=== PATIENT | male | born 1940 | race Caucasian/White ===

== ENCOUNTER 2021-05-27 20:34 | Inpatient (IN) | payer MEDICARE ==
[2021-05-27] MEDS ORDERED: ACETAMINOPHEN TAB 500 MG TAB PO STA (22:18)
[2021-05-27] MEDS ORDERED: DEXAMETHASONE SOD PHOSPHATE 10 MG/ML 1 ML VIAL IVP STA (22:18)
[2021-05-27] MEDS ORDERED: PANTOPRAZOLE 40 MG/10 ML VIAL IVP STA (22:18)
[2021-05-27] MEDS ORDERED: ONDANSETRON 4 MG/2 ML VIAL IVP STA (22:18)
[2021-05-27] MEDS ORDERED: KETOROLAC 15 MG/ML 1 ML VIAL IVP STA (22:18)
[2021-05-27] MEDS ORDERED: SODIUM CHLORIDE 0.9% 1,000 ML IV STA (22:18)
--- NOTE | 2021-05-27 22:20 | ED ---
Fever HPI - General Chief Complaint: Nausea/Vomiting/Diarrhea Stated Complaint: Covid+,CODY Time Seen by Provider: 05/27/21 22:11 Source: patient, RN notes reviewed, old records reviewed Mode of arrival: ambulatory Limitations: no limitations - History of Present Illness Initial Comments: This is a 81-year-old male to the emergency room today. Patient is presented today for evaluation regards to his. Patient is on day 3 not feeling well. Weakness has been persistent. Patient believes he may be exposed to coronavirus patient did and at home coronavirus test which was positive for coronavirus. Again patient is going on day 3-4 not feeling well. He is having persistent nausea vomiting diarrhea and occasional abdominal pain. Medical history is positive for diabetes. He does have underlying heart disease MD Complaint: fever, malaise, weakness, other (NVD) -: days(s) (4) Temperature Source: subjective Context: sick contacts, multiple patients with similar symptoms Associated Symptoms: chills, myalgias, sore throat, cough, nausea, vomiting, diarrhea Treatments Prior to Arrival: none - Related Data Allergies Allergy/AdvReac Type Severity Reaction Status Date / Time colchicine Allergy Unknown Verified 05/27/21 21:11 levofloxacin Allergy Unknown Verified 05/27/21 21:11 metformin Allergy Unknown Verified 05/27/21 21:11 metolazone Allergy Unknown Verified 05/27/21 21:11 sertraline Allergy Unknown Verified 05/27/21 21:11 sitagliptin [From Januvia] Allergy Unknown Verified 05/27/21 21:11 Review of Systems ROS Statement: Those systems with pertinent positive or pertinent negative responses have been documented in the HPI. ROS Other: All systems not noted in ROS Statement are negative. Past Medical History Past Medical History: Atrial Fibrillation, Heart Failure, Diabetes Mellitus, GERD/Reflux, Hyperlipidemia, Hypertension Additional Past Medical History / Comment(s): Gout History of Any Multi-Drug Resistant Organisms: None Reported Past Surgical History: Coronary Bypass/CABG, Heart Catheterization With Stent, Pacemaker Additional Past Surgical History / Comment(s): lela and neli 2011 Past Psychological History: No Psychological Hx Reported Smoking Status: Never smoker Past Alcohol Use History: None Reported Past Drug Use History: None Reported General Exam General appearance: alert, anxious, lethargic, in distress Head exam: Present: atraumatic, normocephalic, normal inspection Eye exam: Present: normal appearance, PERRL, EOMI. Absent: scleral icterus, conjunctival injection, periorbital swelling ENT exam: Present: normal exam, mucous membranes dry Neck exam: Present: normal inspection. Absent: tenderness, meningismus, lymphadenopathy Respiratory exam: Present: respiratory distress, decreased breath sounds, prolonged expiratory. Absent: wheezes, rales, rhonchi, stridor Cardiovascular Exam: Present: regular rate, normal rhythm, normal heart sounds. Absent: systolic murmur, diastolic murmur, rubs, gallop, clicks GI/Abdominal exam: Present: soft, normal bowel sounds. Absent: distended, tenderness, guarding, rebound, rigid Extremities exam: Present: normal inspection, full ROM, normal capillary refill. Absent: tenderness, pedal edema, joint swelling, calf tenderness Back exam: Present: normal inspection Neurological exam: Present: alert, oriented X3, CN II-XII intact Psychiatric exam: Present: normal affect, normal mood Skin exam: Present: warm, dry, intact, normal color. Absent: rash Course Vital Signs 05/27/21 05/27/21 21:11 22:34 Temperature 101.7 F H Pulse Rate 104 H Respiratory 20 26 H Rate Blood Pressure 150/80 O2 Sat by Pulse 94 L Oximetry - Reevaluation(s) Reevaluation #1: 05/27/21 22:30 Medical record is reviewed Reevaluation #2: 05/28/21 00:22 She is having some improvement with supportive care fever control and supplemental o2 Reevaluation #3: 05/28/21 00:23 Patient informed of results and questions have been answered - Consultations Consultation #1: spoke w [facility] physicians who agreed to admit the patient Medical Decision Making - Medical Decision Making 81 male to the emergency department today. Patient resents today for evaluation regards to fever weakness 3-4 days. Patient positive for coronavirus with coronavirus pneumonia and hypoxic on arrival to the emergency department. Patient be admitted - Lab Data Result diagrams: 05/27/21 22:59 05/27/21 22:59 Lab Results 05/27/21 05/27/21 05/27/21 Range/Units 21:21 22:59 22:59 WBC (3.8-10.6) k/uL RBC (4.30-5.90) m/uL Hgb (13.0-17.5) gm/dL Hct (39.0-53.0) % MCV (80.0-100.0) fL MCH (25.0-35.0) pg MCHC (31.0-37.0) g/dL RDW (11.5-15.5) % Plt Count (150-450) k/uL MPV Neutrophils % % Lymphocytes % % Monocytes % % Eosinophils % % Basophils % % Neutrophils # (1.3-7.7) k/uL Lymphocytes # (1.0-4.8) k/uL Monocytes # (0-1.0) k/uL Eosinophils # (0-0.7) k/uL Basophils # (0-0.2) k/uL PT (9.0-12.0) sec INR (<1.2) APTT (22.0-30.0) sec Sodium (137-145) mmol/L Potassium (3.5-5.1) mmol/L Chloride (98-107) mmol/L Carbon Dioxide (22-30) mmol/L Anion Gap mmol/L BUN (9-20) mg/dL Creatinine (0.66-1.25) mg/dL Est GFR (CKD-EPI)AfAm (>60 ml/min/1.73 sqM) Est GFR (CKD-EPI)NonAf (>60 ml/min/1.73 sqM) Glucose (74-99) mg/dL Plasma Lactic Acid Farhad (0.7-2.0) mmol/L Calcium (8.4-10.2) mg/dL Magnesium (1.6-2.3) mg/dL Total Bilirubin (0.2-1.3) mg/dL AST (17-59) U/L ALT (4-49) U/L Alkaline Phosphatase (38-126) U/L Lactate Dehydrogenase (313-618) U/L Troponin I 0.028 (0.000-0.034) ng/mL C-Reactive Protein (<1.0) mg/dL NT-Pro-B Natriuret Pep 624 pg/mL Total Protein (6.3-8.2) g/dL Albumin (3.5-5.0) g/dL Coronavirus (PCR) Detected A (Not Detectd) 01/16/22 01/16/22 01/16/22 Range/Units 22:59 22:59 22:59 WBC 14.2 H (3.8-10.6) k/uL RBC 4.84 (4.30-5.90) m/uL Hgb 14.9 (13.0-17.5) gm/dL Hct 45.7 (39.0-53.0) % MCV 94.4 (80.0-100.0) fL MCH 30.7 (25.0-35.0) pg MCHC 32.5 (31.0-37.0) g/dL RDW 14.2 (11.5-15.5) % Plt Count 117 L (150-450) k/uL MPV 9.4 Neutrophils % 88 % Lymphocytes % 3 % Monocytes % 6 % Eosinophils % 0 % Basophils % 1 % Neutrophils # 12.5 H (1.3-7.7) k/uL Lymphocytes # 0.4 L (1.0-4.8) k/uL Monocytes # 0.9 (0-1.0) k/uL Eosinophils # 0.1 (0-0.7) k/uL Basophils # 0.1 (0-0.2) k/uL PT 10.5 (9.0-12.0) sec INR 1.0 (<1.2) APTT 24.7 (22.0-30.0) sec Sodium 135 L (137-145) mmol/L Potassium 4.4 (3.5-5.1) mmol/L Chloride 98 (98-107) mmol/L Carbon Dioxide 24 (22-30) mmol/L Anion Gap 13 mmol/L BUN 58 H (9-20) mg/dL Creatinine 1.42 H (0.66-1.25) mg/dL Est GFR (CKD-EPI)AfAm 54 (>60 ml/min/1.73 sqM) Est GFR (CKD-EPI)NonAf 47 (>60 ml/min/1.73 sqM) Glucose 246 H (74-99) mg/dL Plasma Lactic Acid Farhad (0.7-2.0) mmol/L Calcium 8.9 (8.4-10.2) mg/dL Magnesium 2.2 (1.6-2.3) mg/dL Total Bilirubin 3.3 H (0.2-1.3) mg/dL AST 157 H (17-59) U/L ALT 26 (4-49) U/L Alkaline Phosphatase 89 (38-126) U/L Lactate Dehydrogenase 1234 H (313-618) U/L Troponin I (0.000-0.034) ng/mL C-Reactive Protein 36.6 H (<1.0) mg/dL NT-Pro-B Natriuret Pep pg/mL Total Protein 6.6 (6.3-8.2) g/dL Albumin 3.2 L (3.5-5.0) g/dL Coronavirus (PCR) (Not Detectd) 05/27/21 Range/Units 22:59 WBC (3.8-10.6) k/uL RBC (4.30-5.90) m/uL Hgb (13.0-17.5) gm/dL Hct (39.0-53.0) % MCV (80.0-100.0) fL MCH (25.0-35.0) pg MCHC (31.0-37.0) g/dL RDW (11.5-15.5) % Plt Count (150-450) k/uL MPV Neutrophils % % Lymphocytes % % Monocytes % % Eosinophils % % Basophils % % Neutrophils # (1.3-7.7) k/uL Lymphocytes # (1.0-4.8) k/uL Monocytes # (0-1.0) k/uL Eosinophils # (0-0.7) k/uL Basophils # (0-0.2) k/uL PT (9.0-12.0) sec INR (<1.2) APTT (22.0-30.0) sec Sodium (137-145) mmol/L Potassium (3.5-5.1) mmol/L Chloride (98-107) mmol/L Carbon Dioxide (22-30) mmol/L Anion Gap mmol/L BUN (9-20) mg/dL Creatinine (0.66-1.25) mg/dL Est GFR (CKD-EPI)AfAm (>60 ml/min/1.73 sqM) Est GFR (CKD-EPI)NonAf (>60 ml/min/1.73 sqM) Glucose (74-99) mg/dL Plasma Lactic Acid Farhad 2.1 H* (0.7-2.0) mmol/L Calcium (8.4-10.2) mg/dL Magnesium (1.6-2.3) mg/dL Total Bilirubin (0.2-1.3) mg/dL AST (17-59) U/L ALT (4-49) U/L Alkaline Phosphatase (38-126) U/L Lactate Dehydrogenase (313-618) U/L Troponin I (0.000-0.034) ng/mL C-Reactive Protein (<1.0) mg/dL NT-Pro-B Natriuret Pep pg/mL Total Protein (6.3-8.2) g/dL Albumin (3.5-5.0) g/dL Coronavirus (PCR) (Not Detectd) - EKG Data -: EKG Interpreted by Me (EKG shows a paced rhythm 97 WI 170 QRS 164 QTC 520) - Radiology Data Radiology results: report reviewed (CXR positive for linear infiltrate), image reviewed Critical Care Time Critical Care Time: Yes Total Critical Care Time: 31 Disposition Clinical Impression: Dehydration, Gastroenteritis, Nausea & vomiting, Coronavirus infection, Pneumonia due to COVID-19 virus, Hypoxia, Weakness Disposition: ADMITTED IP TO THIS HOSP Condition: Fair Is patient prescribed a controlled substance at d/c from ED?: No Referrals: Jessi Wilson MD [Primary Care Provider] - 1-2 days
--- NOTE | 2021-05-27 22:57 | XR ---
EXAMINATION TYPE: XR chest 1V portable DATE OF EXAM: 05/27/2021 COMPARISON: NONE HISTORY: Weakness TECHNIQUE: Single view FINDINGS: Heart appears enlarged. There is some mild atelectasis left lung base and slight elevated l eft diaphragm. There is left axillary pacemaker. There are sternal wires. No heart failure seen. IMPRESSION: There is some mild infiltrate or atelectasis left lung base. No heart failure.
[2021-05-27 23:11] LABS: Basophils # (A) 0.1 k/uL (0-0.2); Basophils % (A) 1 %; Eosinophils # (A) 0.1 k/uL (0-0.7); Eosinophils % (A) 0 %; HCT 45.7 % (39.0-53.0); HGB 14.9 gm/dL (13.0-17.5); Lymphocytes # (A) 0.4 k/uL (1.0-4.8); Lymphocytes % (A) 3 %; MCH 30.7 pg (25.0-35.0); MCHC 32.5 g/dL (31.0-37.0); MCV 94.4 fL (80.0-100.0); Mean Platelet Volume 9.4; Monocytes # (A) 0.9 k/uL (0-1.0); Monocytes % (A) 6 %; Neutrophils # (A) 12.5 k/uL (1.3-7.7); Neutrophils % (A) 88 %; Platelet Count 117 k/uL (150-450); RBC 4.84 m/uL (4.30-5.90); RDW 14.2 % (11.5-15.5); WBC 14.2 k/uL (3.8-10.6)
[2021-05-27 23:23] LABS: Calcium 8.9 mg/dL (8.4-10.2); Total Bilirubin 3.3 mg/dL (0.2-1.3)
[2021-05-27 23:42] LABS: Partial Thromboplastin Time 24.7 sec (22.0-30.0); Prothrombin Time 10.5 sec (9.0-12.0)
[2021-05-27 23:58] LABS: C Reactive Protein 36.6 mg/dL (<1.0)
[2021-05-28] LABS: Albumin 3.2 g/dL (3.5-5.0); Potassium 4.4 mmol/L (3.5-5.1); Total Protein 6.6 g/dL (6.3-8.2)
[2021-05-28 00:01] LABS: Magnesium 2.2 mg/dL (1.6-2.3)
[2021-05-28] MEDS ORDERED: IBUPROFEN 400 MG TAB PO PRN (00:21)
[2021-05-28] MEDS ORDERED: ACETAMINOPHEN TAB 325 MG TAB PO PRN (00:21)
[2021-05-28] MEDS ORDERED: MORPHINE SULFATE 4 MG/ML SYRINGE IV PRN (00:21)
[2021-05-28] MEDS ORDERED: NALOXONE 0.4 MG/ML 1 ML VIAL IV PRN (00:21)
[2021-05-28] MEDS ORDERED: ONDANSETRON 4 MG/2 ML VIAL IVP PRN (00:21)
[2021-05-28] MEDS: SODIUM CHLORIDE 0.9% 1,000 ML IV SCH ×3 (03:22→16:30)
--- NOTE | 2021-05-28 04:44 | P.HPIM ---
History of Present Illness H&P Date: 05/28/21 Patient is a 81-year-old male with extensive PMH including A. fib, coronary artery disease status post CABG, type II DM, CHF, hypertension, and hyperlipidemia who presents to the emergency room with complaints of lethargy, abdominal pain, and diarrhea. The patient reports that his symptoms started 4 days prior to presentation, and gradually worsened. When his son called him today, he appeared to be tired and confused, at which time they went over to his house where they found him to be extremely weak. The subsequently brought him to the emergency room. The patient had a T-max of 101.7 upon presentation, pulse 104, and SpO2 of 94% on room air. Laboratory evaluation was remarkable for leukocytosis of 14.2, BUN 58, creatinine 1.42, glucose 246, lactic acid 2.1, positive COVID PCR. Chest x-ray revealed a mild infiltrate at the left lung base. EKG revealed a paced rhythm at 97 bpm. Review of systems: Pertinent positives and negatives as discussed in HPI, a complete review of systems was performed and all other systems are negative. Physical examination: General: Somewhat ill-appearing, no distress, appears at stated age, obese Derm: no unusual rashes/lesions no unusual ecchymoses, warm, dry Head: atraumatic, normocephalic, symmetric Eyes: EOMI, no lid lag, anicteric sclera, pupils equal round reactive to light ENT: Nose and ears atraumatic, no thrush, no pharyngeal erythema Neck: No thyromegaly, no cervical lymphadenopathy, trachea midline, supple Mouth: no lip lesion, mucus membranes moist Cardiovascular: S1S2 reg, no murmur, positive posterior tibial pulse bilateral, no edema, capillary refill less than 2 seconds Lungs: Scattered rhonchi, no wheezing or rales appreciated, no accessory muscle use Abdominal: soft, nontender to palpation, no guarding, no appreciable organomegaly, normal bowel sounds Ext: no gross muscle atrophy, muscle strength 3 out of 5 in all 4 extremities grossly, no contractures, Neuro: CN II-XI grossly intact, light touch intact all 4 extremities, finger to nose within normal limits, Psych: Alert, oriented, appropriate affect Assessment/plan Acute hypoxic respiratory failure secondary to COVID-19 pneumonitis -Continue Decadron -Zinc, vitamin C, vitamin D, melatonin -Pulmonary consulted -Supplemental oxygen Acute kidney injury -Continue IV fluids Lactic acidosis -Monitor for resolution Chronic conditions: Type II DM, hypertension, hyperlipidemia, A. fib -Continue with home meds DVT prophylaxis -Eliquis The patient is admitted with an anticipated greater than 2 midnight stay for evaluation of COVID CODE STATUS: Full Code Discussed with: Patient Anticipated discharge date: 3-[address]: Home Past Medical History Past Medical History: Atrial Fibrillation, Heart Failure, Diabetes Mellitus, GERD/Reflux, Hyperlipidemia, Hypertension Additional Past Medical History / Comment(s): Gout History of Any Multi-Drug Resistant Organisms: None Reported Past Surgical History: Coronary Bypass/CABG, Heart Catheterization With Stent, Pacemaker Additional Past Surgical History / Comment(s): pacer and defib 2012 Past Psychological History: No Psychological Hx Reported Smoking Status: Never smoker Past Alcohol Use History: None Reported Past Drug Use History: None Reported Medications and Allergies Home Medications Medication Instructions Recorded Confirmed Type Amiodarone [Cordarone] 100 mg PO DAILY 05/28/21 05/28/21 History Apixaban [Eliquis] 2.5 mg PO BID 05/28/21 05/28/21 History Aspirin 81 mg PO DAILY 05/28/21 05/28/21 History Atorvastatin [Lipitor] 80 mg PO DAILY 05/28/21 05/28/21 History Cholecalciferol [Vitamin D3 (25 50 mcg PO DAILY 05/28/21 05/28/21 History Mcg = 1000 Iu)] Dulaglutide [Trulicity] 1.5 mg SQ WEEKLY 05/28/21 05/28/21 History Febuxostat 40 mg PO DAILY 05/28/21 05/28/21 History HYDROcodone/APAP 5-325MG [[place] 1 tab PO Q6HR PRN 05/28/21 05/28/21 History 5-325] Indomethacin [Indocin] 50 mg PO BID 05/28/21 05/28/21 History Insulin Glargine,Hum.rec.anlog 100 unit SQ DAILY 05/28/21 05/28/21 History [Lantus Solostar Pen] Omeprazole 20 mg PO DAILY 05/28/21 05/28/21 History Torsemide [Demadex] 20 mg PO BID 05/28/21 05/28/21 History carvediloL [Coreg] 6.25 mg PO BID 05/28/21 05/28/21 History Allergies Allergy/AdvReac Type Severity Reaction Status Date / Time colchicine Allergy Unknown Verified 05/27/21 21:11 levofloxacin Allergy Unknown Verified 05/27/21 21:11 metformin Allergy Unknown Verified 05/27/21 21:11 metolazone Allergy Unknown Verified 05/27/21 21:11 sertraline Allergy Unknown Verified 05/27/21 21:11 sitagliptin [From Januvia] Allergy Unknown Verified 05/27/21 21:11 Physical Exam Vitals: Vital Signs Temp Pulse Resp BP Pulse Ox 05/28/21 03:00 76 22 149/89 98 05/28/21 02:04 84 16 98 05/27/21 22:34 26 H 05/27/21 21:11 101.7 F H 104 H 20 150/80 94 L Intake and Output 05/27/21 05/27/21 05/28/21 14:59 22:59 06:59 Other: Weight 93.894 kg Results CBC & Chem 7: 05/27/21 22:59 05/27/21 22:59 Labs: Abnormal Lab Results - Last 24 Hours (Table) 05/27/21 05/27/21 05/27/21 Range/Units 21:21 22:59 22:59 WBC 14.2 H (3.8-10.6) k/uL Plt Count 117 L (150-450) k/uL Neutrophils # 12.5 H (1.3-7.7) k/uL Lymphocytes # 0.4 L (1.0-4.8) k/uL Sodium 135 L (137-145) mmol/L BUN 58 H (9-20) mg/dL Creatinine 1.42 H (0.66-1.25) mg/dL Glucose 246 H (74-99) mg/dL Plasma Lactic Acid Farhad (0.7-2.0) mmol/L Total Bilirubin 3.3 H (0.2-1.3) mg/dL AST 157 H (17-59) U/L Lactate Dehydrogenase 1234 H (313-618) U/L C-Reactive Protein 36.6 H (<1.0) mg/dL Albumin 3.2 L (3.5-5.0) g/dL Coronavirus (PCR) Detected A (Not Detectd) 05/27/21 Range/Units 22:59 WBC (3.8-10.6) k/uL Plt Count (150-450) k/uL Neutrophils # (1.3-7.7) k/uL Lymphocytes # (1.0-4.8) k/uL Sodium (137-145) mmol/L BUN (9-20) mg/dL Creatinine (0.66-1.25) mg/dL Glucose (74-99) mg/dL Plasma Lactic Acid Farhad 2.1 H* (0.7-2.0) mmol/L Total Bilirubin (0.2-1.3) mg/dL AST (17-59) U/L Lactate Dehydrogenase (313-618) U/L C-Reactive Protein (<1.0) mg/dL Albumin (3.5-5.0) g/dL Coronavirus (PCR) (Not Detectd)
[2021-05-28 05:36] LABS: Glucose,Whole Blood 272 mg/dL (75-99)
[2021-05-28 08:58] LABS: Glucose,Whole Blood 301 mg/dL (75-99)
[2021-05-28] MEDS ORDERED: CHOLECALCIFEROL 25 MCG (1000 IU) TABLET PO SCH (09:00)
[2021-05-28] MEDS: CHOLECALCIFEROL 25 MCG (1000 IU) TABLET PO SCH (09:06)
[2021-05-28] MEDS: ASCORBIC ACID 500 MG TAB PO SCH (09:07)
[2021-05-28] MEDS: ASPIRIN 81 MG PO SCH (09:07)
[2021-05-28] MEDS: APIXABAN 2.5 MG TABLET PO SCH ×2 (09:07→20:43)
[2021-05-28] MEDS: carvediloL 6.25 MG TAB PO SCH ×2 (09:07→20:43)
[2021-05-28] MEDS: ZINC SULFATE 220 MG CAP PO SCH (09:07)
[2021-05-28] MEDS: ATORVASTATIN 80 MG TAB PO SCH (09:07)
[2021-05-28] MEDS: DEXAMETHASONE SOD PHOSPHATE 10 MG/ML 1 ML VIAL IVP SCH (09:07)
[2021-05-28] MEDS: INSULIN ASPART (NovoLOG) 100 UNIT/ML VIAL SQ SCH ×4 (09:20→20:42)
[2021-05-28] MEDS: AMIODARONE 100 MG TAB PO SCH (09:56)
[2021-05-28 12:00] LABS: Glucose,Whole Blood 477 mg/dL (75-99)
[2021-05-28] MEDS ORDERED: INSULIN DETEMIR (LEVEMIR) 100 UNIT/ML SYR SQ ONE (12:30)
[2021-05-28 17:31] LABS: Glucose,Whole Blood 388 mg/dL (75-99)
[2021-05-28 20:30] LABS: Glucose,Whole Blood 390 mg/dL (75-99)
[2021-05-28] MEDS ORDERED: INSULIN DETEMIR (LEVEMIR) 100 UNIT/ML SYR SQ SCH (21:00)
[2021-05-29 07:10] LABS: Glucose,Whole Blood 335 mg/dL (75-99)
[2021-05-29] MEDS: ATORVASTATIN 80 MG TAB PO SCH (08:11)
[2021-05-29] MEDS: DEXAMETHASONE SOD PHOSPHATE 10 MG/ML 1 ML VIAL IVP SCH (08:11)
[2021-05-29] MEDS: ASCORBIC ACID 500 MG TAB PO SCH (08:11)
[2021-05-29] MEDS: ZINC SULFATE 220 MG CAP PO SCH (08:12)
[2021-05-29] MEDS: CHOLECALCIFEROL 25 MCG (1000 IU) TABLET PO SCH (08:12)
[2021-05-29] MEDS: ASPIRIN 81 MG PO SCH (08:12)
[2021-05-29] MEDS: APIXABAN 2.5 MG TABLET PO SCH ×2 (08:12→22:06)
[2021-05-29] MEDS: carvediloL 6.25 MG TAB PO SCH ×2 (08:12→22:06)
[2021-05-29] MEDS: AMIODARONE 100 MG TAB PO SCH (08:12)
[2021-05-29] MEDS: INSULIN ASPART (NovoLOG) 100 UNIT/ML VIAL SQ SCH ×6 (08:13→22:08)
[2021-05-29] MEDS: SODIUM CHLORIDE 0.9% 1,000 ML IV SCH ×3 (08:14→13:45)
[2021-05-29 09:06] LABS: Basophils # (A) 0.01 X 10*3/uL (0.00-0.10); Basophils % (A) 0.1 %; Eosinophils # (A) 0 X 10*3/uL (0.04-0.35); Eosinophils % (A) 0 %; HCT 42.3 % (39.6-50.0); HGB 13.9 g/dL (13.0-17.0); Lymphocytes # (A) 0.64 X 10*3/uL (0.90-5.00); Lymphocytes % (A) 4.9 %; MCH 30.5 pg (27.0-32.0); MCHC 32.9 g/dL (32.0-37.0); Mean Platelet Volume 11.9 fL (9.5-12.2); Monocytes # (A) 0.91 X 10*3/uL (0.20-1.00); Monocytes % (A) 6.9 %; Neutrophils % (A) 87.6 %; Platelet Count 136 X 10*3/uL (140-440); RBC 4.55 X 10*6/uL (4.40-5.60); RDW 15.4 % (11.5-14.5); WBC 13.12 X 10*3/uL (4.50-10.00)
[2021-05-29 09:09] LABS: African American GFR (CKD) 60.1 (60.0-200.0); Albumin 2.8 g/dL (3.8-4.9); Albumin/Globulin Ratio 1.12 (1.60-3.17); Anion Gap 11.3 mmol/L (10.00-18.00); BUN/Creat Ratio 41.38 Ratio (12.00-20.00); Blood Urea Nitrogen 53.8 mg/dL (9.0-27.0); Calcium 7.9 mg/dL (8.7-10.3); Carbon Dioxide 22.7 mmol/L (20.0-27.5); Globulin 2.5 g/dL (1.6-3.3); Non-African American GFR(CKD) 51.9 (60.0-200.0); Potassium 4.4 mmol/L (3.5-5.5); Total Bilirubin 1.2 mg/dL (0.30-1.20); Total Protein 5.3 g/dL (6.2-8.2)
[2021-05-29 12:25] LABS: Glucose,Whole Blood 370 mg/dL (75-99)
[2021-05-29 13:12] VITALS: BMI 33.4
--- NOTE | 2021-05-29 15:36 | P.PN ---
<Gareth Rothman - Last Filed: 05/29/21 15:17> Subjective Progress Note Date: 05/29/21 Principal diagnosis: Covid pneumonia Hospital course: Patient is a very pleasant 81-year-old male with a past medical history of CAD status post quadruple bypass, paroxysmal atrial fibrillation on anticoagulation with Eliquis, status post pacemaker, congestive heart failure, hypertension, hyperlipidemia, and type 2 diabetes mellitus. He presented to the emergency department on 05/28/21 with a chief complaint of a, abdominal pain, and diarrhea. Upon arrival to the emergency department patient was found to have an elevated temp of 101.7F, tachycardia with a heart rate in the 104, leukocytosis with WBC count of 14.2, and an acute kidney injury with BUN 48, creatinine 1.42, and GFR of 47. Covid PCR was positive. Chest x-ray revealed mild infiltrate at the left lung base. EKG revealing a ventricular paced rhythm of 97 bpm. Patient was admitted under our services with consultation to pulmonology. Physical exam: Patient seen and fully evaluated at the bedside this morning. Patient with a depressed affect. Patient states that he has been struggling on and off with depression over the past 4 years when his left him and more so increased after his son committed suicide last month. Patient reports he just feels tired and slightly short of breath. He states he fatigues very easily, simply by walking to the restroom. He denies having any headache, lightheadedness, dizziness, chest pain, palpitations, abdominal pain, nausea, or vomiting at this time. Patient does admit to depression but denies having any suicidal or homicidal ideations, visual/tactile/auditory hallucinations, and denies experiencing anxiety. Morning labs revealed leukocytosis with WBC count of 13.12 improvement in renal function with BUN 53.8, creatinine 1.3, and GFR 51.9. We will discontinue IV fluids at this time and continue to hold diuretics And monitor for further improvement Vital signs reviewed and stable. General: Nontoxic, no distress and appears stated age. Obese. Derm: Skin warm and dry, normal coloration for ethnicity. Head: Atraumatic, normocephalic and symmetric. Eyes: EOMs intact, no lid lag, and anicteric sclera Mouth: no lip lesions, mucus membranes moist Cardiovascular: regular rate and rhythm with normal S1S2, systolic murmur, positive posterior tibial pulses bilaterally, and cap refill < 2 seconds. Lungs: Respirations even, regular, and unlabored on 3 L O2 via nasal cannula. Lungs diminished with crackles left lower lobe, no rhonchi, no rales, no wheezing, and no accessory muscle usage. Abdominal: soft, nontender to palpation, no guarding, no appreciable organomegaly Ext: ROM intact. No gross muscle atrophy, 1+ pitting bilateral lower extremity edema, no contractures Neuro: Speech clear, face symmetrical and CN II-XII grossly intact with no noted focal neuro deficits Psych: Alert and oriented to person, place, time, and situation. Appropriate and pleasant affect. Assessment and Plan of Care: Acute respiratory failure with hypoxia secondary to COVID 19 pneumonia -Oxygenation to be administered and titrated as needed to maintain SPO2 equal to or greater than 90% -Telemetry monitoring. -Continue trending inflammatory markers -Encourage Incentive Spirometry 10-15x hourly while awake -Steroids: Decadron 6 mg daily -Continue vitamin C, Vitamin D, and Zinc. -Pulmonology following, appreciate further recommendations. -DVT prophylaxis with Lovenox. -Strict Droplet plus Contact precautions Depression resulting from life stressors including the recent suicide of his son -Discussed with social work, will arrange for outpatient support groups and assistance upon discharge. 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 Blood glucose levels in 300 Levemir increased to 30 units nightly and patient placed on fixed dose insulin 3 units before meals at bedtime in addition to NovoLog sliding scale. Lactic acidosis, resolved Paroxysmal atrial fibrillation -Continue anticoagulation with Eliquis. Coronary artery disease status post quadruple bypass and pacemaker placement Hypertension Hyperlipidemia -Monitor vital signs and continue daily medication regimen with Eliquis, aspirin, atorvastatin, amiodarone, carvedilol, and Imdur. CODE STATUS: Full code DVT prophylaxis: Eliquis Discussed with: Patient and RN Anticipated discharge date: Clinical course to determine Anticipated discharge place: Home versus home with home care A total of 40 minutes was spent on the care of this complex patient more than 50% of the time was spent in counseling and care coordination. Objective - Vital Signs Vital signs: Vital Signs Temp 97.6 F 05/29/21 05:48 Pulse 80 05/29/21 05:48 Resp 18 05/29/21 05:48 BP 125/72 05/29/21 05:48 Pulse Ox 98 05/29/21 05:48 Intake & Output 05/28/21 05/29/21 05/29/21 18:59 06:59 18:59 Intake Total 236 Output Total 600 Balance 236 -600 Weight 93.894 kg Intake: Oral 236 Output: Urine 600 Other: # Voids 1 2 # Bowel Movements 1 1 - Labs CBC & Chem 7: 05/29/21 06:17 05/29/21 06:17 Labs: Abnormal Lab Results - Last 24 Hours (Table) 05/27/21 05/28/21 05/28/21 Range/Units 22:59 08:56 11:59 POC Glucose (mg/dL) 301 H 477 H (75-99) mg/dL Hemoglobin A1c 11.3 H (0.0-6.0) % 05/28/21 05/28/21 05/29/21 Range/Units 17:30 20:30 07:09 POC Glucose (mg/dL) 388 H 390 H 335 H (75-99) mg/dL Hemoglobin A1c (0.0-6.0) % <Jose De Jesus Vogel - Last Filed: 05/29/21 17:38> Subjective I reviewed the documentation as provided by the JUAN RAMON above, who is the original author of this note. I agree with the documented assessment and plan, with the following changes: None Objective - Vital Signs Vital signs: Vital Signs Temp 97.5 F L 05/29/21 14:00 Pulse 80 05/29/21 14:00 Resp 18 05/29/21 14:00 BP 110/72 05/29/21 14:00 Pulse Ox 98 05/29/21 05:48 Intake & Output 05/28/21 05/29/21 05/29/21 18:59 06:59 18:59 Intake Total 236 Output Total 600 Balance 236 -600 Weight 93.894 kg 93.894 kg Intake: Oral 236 Output: Urine 600 Other: # Voids 1 2 1 # Bowel Movements 1 1 1 - Labs CBC & Chem 7: 05/29/21 06:17 05/29/21 06:17 Labs: Abnormal Lab Results - Last 24 Hours (Table) 05/27/21 05/28/21 05/29/21 Range/Units 22:59 20:30 06:17 WBC 13.12 H (4.50-10.00) X 10*3/uL RDW 15.4 H (11.5-14.5) % Plt Count 136 L (140-440) X 10*3/uL Immature Gran # 0.06 H (0.00-0.04) X 10*3/uL Neutrophils # 11.50 H (1.80-7.70) X 10*3/uL Lymphocytes # 0.64 L (0.90-5.00) X 10*3/uL Eosinophils # 0 L (0.04-0.35) X 10*3/uL BUN (9.0-27.0) mg/dL Est GFR (CKD-EPI)NonAf (60.0-200.0) BUN/Creatinine Ratio (12.00-20.00) Ratio Glucose (70-110) mg/dL POC Glucose (mg/dL) 390 H (75-99) mg/dL Hemoglobin A1c 11.3 H (0.0-6.0) % Calcium (8.7-10.3) mg/dL AST (14-35) U/L Total Protein (6.2-8.2) g/dL Albumin (3.8-4.9) g/dL Albumin/Globulin Ratio (1.60-3.17) g/dL 05/29/21 05/29/21 05/29/21 Range/Units 06:17 07:09 12:24 WBC (4.50-10.00) X 10*3/uL RDW (11.5-14.5) % Plt Count (140-440) X 10*3/uL Immature Gran # (0.00-0.04) X 10*3/uL Neutrophils # (1.80-7.70) X 10*3/uL Lymphocytes # (0.90-5.00) X 10*3/uL Eosinophils # (0.04-0.35) X 10*3/uL BUN 53.8 H (9.0-27.0) mg/dL Est GFR (CKD-EPI)NonAf 51.9 L (60.0-200.0) BUN/Creatinine Ratio 41.38 H (12.00-20.00) Ratio Glucose 328 H (70-110) mg/dL POC Glucose (mg/dL) 335 H 370 H (75-99) mg/dL Hemoglobin A1c (0.0-6.0) % Calcium 7.9 L (8.7-10.3) mg/dL AST 117 H (14-35) U/L Total Protein 5.3 L (6.2-8.2) g/dL Albumin 2.8 L (3.8-4.9) g/dL Albumin/Globulin Ratio 1.12 L (1.60-3.17) g/dL 05/29/21 Range/Units 16:44 WBC (4.50-10.00) X 10*3/uL RDW (11.5-14.5) % Plt Count (140-440) X 10*3/uL Immature Gran # (0.00-0.04) X 10*3/uL Neutrophils # (1.80-7.70) X 10*3/uL Lymphocytes # (0.90-5.00) X 10*3/uL Eosinophils # (0.04-0.35) X 10*3/uL BUN (9.0-27.0) mg/dL Est GFR (CKD-EPI)NonAf (60.0-200.0) BUN/Creatinine Ratio (12.00-20.00) Ratio Glucose (70-110) mg/dL POC Glucose (mg/dL) 297 H (75-99) mg/dL Hemoglobin A1c (0.0-6.0) % Calcium (8.7-10.3) mg/dL AST (14-35) U/L Total Protein (6.2-8.2) g/dL Albumin (3.8-4.9) g/dL Albumin/Globulin Ratio (1.60-3.17) g/dL
[2021-05-29 16:46] LABS: Glucose,Whole Blood 297 mg/dL (75-99)
[2021-05-29 20:04] LABS: Glucose,Whole Blood 285 mg/dL (75-99)
[2021-05-29] MEDS ORDERED: INSULIN DETEMIR (LEVEMIR) 100 UNIT/ML SYR SQ SCH (21:00)
[2021-05-29] MEDS: INSULIN DETEMIR (LEVEMIR) 100 UNIT/ML SYR SQ SCH (22:08)
[2021-05-30 07:16] LABS: Glucose,Whole Blood 132 mg/dL (75-99)
[2021-05-30] MEDS: INSULIN ASPART (NovoLOG) 100 UNIT/ML VIAL SQ SCH ×8 (08:24→21:27)
[2021-05-30] MEDS: ASCORBIC ACID 500 MG TAB PO SCH (09:17)
[2021-05-30] MEDS: ZINC SULFATE 220 MG CAP PO SCH (09:17)
[2021-05-30] MEDS: carvediloL 6.25 MG TAB PO SCH ×2 (09:17→21:27)
[2021-05-30] MEDS: DEXAMETHASONE SOD PHOSPHATE 10 MG/ML 1 ML VIAL IVP SCH (09:17)
[2021-05-30] MEDS: ATORVASTATIN 80 MG TAB PO SCH (09:17)
[2021-05-30] MEDS: CHOLECALCIFEROL 25 MCG (1000 IU) TABLET PO SCH (09:17)
[2021-05-30] MEDS: APIXABAN 2.5 MG TABLET PO SCH ×2 (09:17→21:27)
[2021-05-30] MEDS: ASPIRIN 81 MG PO SCH (09:18)
[2021-05-30] MEDS: AMIODARONE 100 MG TAB PO SCH (09:18)
[2021-05-30 09:36] LABS: HCT 43.2 % (39.6-50.0); HGB 13.9 g/dL (13.0-17.0); MCH 30.2 pg (27.0-32.0); MCHC 32.2 g/dL (32.0-37.0); MCV 93.9 fL (80.0-97.0); Mean Platelet Volume 11.5 fL (9.5-12.2); Platelet Count 173 X 10*3/uL (140-440); RDW 15.3 % (11.5-14.5); WBC 11.55 X 10*3/uL (4.50-10.00)
--- NOTE | 2021-05-30 10:24 | CT ---
EXAMINATION TYPE: CT chest angio for PE DATE OF EXAM: 05/30/2021 COMPARISON: Chest x-ray 05/27/2021 HISTORY: Elevated Ddimer, Covid, abnormal chest x-ray CT DLP: 626.2 mGycm Automated exposure control for dose reduction was used. CONTRAST: CT Chest for pulmonary embolism performed with with IV Contrast, patient injected with 80 mL of Isovu e 370. FINDINGS: Generator is present in left pectoral region, there are leads present within the right atri um, right ventricle. Left hemidiaphragm is elevated. There is extensive artifact present which can li frandy evaluation. Patient is post median sternotomy. LUNGS: The left lower lobe shows some air bronchogram formation, consolidation, there is no concernin g parenchymal mass or nodule identified. There is no pleural effusion or pneumothorax seen. The tr acheobronchial tree is patent. MEDIASTINUM: There is satisfactory enhancement of the pulmonary artery and limited enhancement of seg mental branches, there is no CT evidence for central pulmonary embolism. In the right lower lobe at t he segmental and subsegmental branches level, axial image #74, 78 poor enhancement is present extendi ng peripherally, similar findings present in the segmental branches in the left lower lobe where ther e is focal consolidation, axial images #73 through 77 There are no greater than 1 cm hilar or mediast inal lymph nodes. No pericardial effusion is seen. The heart is enlarged. Widened mediastinum show s fat and benign-appearing lymph nodes. AORTA: Root of the aorta is enlarged and 4.3 cm, proximal ascending aorta measures 4.5 cm, proximal descending aorta. OTHER: Reflux of contrast material into the hepatic veins and inferior vena cava may be indicative o f right heart failure. IMPRESSION: There are limitations to the exam as described. Cardiomegaly, postop changes. Correlate f or left lower lobe pneumonia versus atelectasis. Aortic aneurysm. Correlate for possible right heart failure, additional findings above
[2021-05-30 11:35] LABS: African American GFR (CKD) 69.8 (60.0-200.0); Albumin 2.9 g/dL (3.8-4.9); Albumin/Globulin Ratio 1.11 (1.60-3.17); Anion Gap 10.4 mmol/L (10.00-18.00); BUN/Creat Ratio 35.74 Ratio (12.00-20.00); Blood Urea Nitrogen 41.1 mg/dL (9.0-27.0); C Reactive Protein 6.5 mg/dL (0.00-0.80); Calcium 8.5 mg/dL (8.7-10.3); Carbon Dioxide 24.2 mmol/L (20.0-27.5); Globulin 2.6 g/dL (1.6-3.3); Magnesium 2.2 mg/dL (1.5-2.4); Non-African American GFR(CKD) 60.2 (60.0-200.0); Total Protein 5.5 g/dL (6.2-8.2)
[2021-05-30 11:57] LABS: Glucose,Whole Blood 261 mg/dL (75-99)
--- NOTE | 2021-05-30 12:58 | P.PN ---
<Gareth Rothman - Last Filed: 05/30/21 16:09> Subjective Progress Note Date: 05/30/21 Principal diagnosis: Covid pneumonia Hospital course: Patient is a very pleasant 81-year-old male with a past medical history of CAD status post quadruple bypass, paroxysmal atrial fibrillation on anticoagulation with Eliquis, status post pacemaker, congestive heart failure, hypertension, hyperlipidemia, and type 2 diabetes mellitus. He presented to the emergency department on 05/28/21 with a chief complaint of a, abdominal pain, and diarrhea. Upon arrival to the emergency department patient was found to have an elevated temp of 101.7F, tachycardia with a heart rate in the 104, leukocytosis with WBC count of 14.2, and an acute kidney injury with BUN 48, creatinine 1.42, and GFR of 47. Covid PCR was positive. Chest x-ray revealed mild infiltrate at the left lung base. EKG revealing a ventricular paced rhythm of 97 bpm. Patient was admitted under our services with consultation to pulmonology. Physical exam: Patient seen and fully evaluated at the bedside this morning. He continues to report feeling fatigued and short of breath, he states mild short of breath but significantly increases with exertion. Patient states shortness of breath with exertion seems worse today than it did yesterday. He remains on 2 L O2 via nasal cannula. Respirations even, regular, and unlabored. Patient did have diffuse coarse rhonchi upon assessment. D-dimer elevated this morning at 2.82, LDH 260, and CRP of 6.50. Order placed for stat CTA. CTA revealing cardiomegaly with left lower lobe pneumonia versus atelectasis, aortic aneurysm, and concerns of right heart failure. Order placed for echocardiogram and consult to cardiology and we will give one-time dose of Lasix 40 mg IVP.. Patient continues to deny having any headache, lightheadedness, dizziness, chest pain, or palpitations. Vital signs reviewed and stable. General: Nontoxic, no distress and appears stated age. Obese. Derm: Skin warm and dry, normal coloration for ethnicity. Head: Atraumatic, normocephalic and symmetric. Eyes: EOMs intact, no lid lag, and anicteric sclera Mouth: no lip lesions, mucus membranes moist Cardiovascular: regular rate and rhythm with normal S1S2, systolic murmur, positive posterior tibial pulses bilaterally, and cap refill < 2 seconds. Lungs: Respirations even, regular, and unlabored on 2 L O2 via nasal cannula. Lungs with diffuse coarse rhonchi bilaterally. Abdominal: soft, nontender to palpation, no guarding, no appreciable organomegaly Ext: ROM intact. No gross muscle atrophy, 1+ pitting bilateral lower extremity edema, no contractures Neuro: Speech clear, face symmetrical and CN II-XII grossly intact with no noted focal neuro deficits Psych: Alert and oriented to person, place, time, and situation. Appropriate and pleasant affect. Assessment and Plan of Care: Acute respiratory failure with hypoxia secondary to COVID 19 pneumonia -Oxygenation to be administered and titrated as needed to maintain SPO2 equal to or greater than 90% -Telemetry monitoring. -Continue trending inflammatory markers -Encourage Incentive Spirometry 10-15x hourly while awake -Steroids: Decadron 6 mg daily -Continue vitamin C, Vitamin D, and Zinc. -Pulmonology following, appreciate further recommendations. -DVT prophylaxis with Lovenox. -Strict Droplet plus Contact precautions Depression resulting from life stressors including the recent suicide of his son -Discussed with social work, will arrange for outpatient support groups and assistance upon discharge. 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 Blood glucose levels in 300 Levemir increased to 30 units nightly and patient placed on fixed dose insulin 3 units before meals at bedtime in addition to NovoLog sliding scale. Lactic acidosis, resolved Paroxysmal atrial fibrillation -Continue anticoagulation with Eliquis. Coronary artery disease status post quadruple bypass and pacemaker placement Hypertension Hyperlipidemia -Monitor vital signs and continue daily medication regimen with Eliquis, aspirin, atorvastatin, amiodarone, carvedilol, and Imdur. CODE STATUS: Full code DVT prophylaxis: Eliquis Discussed with: Patient and RN Anticipated discharge date: Clinical course to determine Anticipated discharge place: Home versus home with home care A total of 40 minutes was spent on the care of this complex patient more than 50% of the time was spent in counseling and care coordination. Objective - Vital Signs Vital signs: Vital Signs Temp 98.0 F 05/30/21 05:37 Pulse 80 05/30/21 05:37 Resp 17 05/30/21 05:37 BP 125/77 05/30/21 05:37 Pulse Ox 97 05/30/21 05:37 Intake & Output 05/29/21 05/30/21 05/30/21 18:59 06:59 18:59 Weight 93.894 kg Other: # Voids 1 # Bowel Movements 1 - Labs CBC & Chem 7: 05/30/21 05:55 05/30/21 05:55 Labs: Abnormal Lab Results - Last 24 Hours (Table) 05/29/21 05/29/21 05/30/21 Range/Units 16:44 20:01 05:55 WBC 11.55 H (4.50-10.00) X 10*3/uL RDW 15.3 H (11.5-14.5) % D-Dimer (<0.60) mg/L FEU BUN (9.0-27.0) mg/dL BUN/Creatinine Ratio (12.00-20.00) Ratio Glucose (70-110) mg/dL POC Glucose (mg/dL) 297 H 285 H (75-99) mg/dL Calcium (8.7-10.3) mg/dL AST (14-35) U/L Lactate Dehydrogenase (120-246) U/L C-Reactive Protein (0.00-0.80) mg/dL Total Protein (6.2-8.2) g/dL Albumin (3.8-4.9) g/dL Albumin/Globulin Ratio (1.60-3.17) g/dL 05/30/21 05/30/21 05/30/21 Range/Units 05:55 05:55 07:15 WBC (4.50-10.00) X 10*3/uL RDW (11.5-14.5) % D-Dimer 2.82 H (<0.60) mg/L FEU BUN 41.1 H (9.0-27.0) mg/dL BUN/Creatinine Ratio 35.74 H (12.00-20.00) Ratio Glucose 168 H (70-110) mg/dL POC Glucose (mg/dL) 132 H (75-99) mg/dL Calcium 8.5 L (8.7-10.3) mg/dL AST 95 H (14-35) U/L Lactate Dehydrogenase 260 H (120-246) U/L C-Reactive Protein 6.50 H (0.00-0.80) mg/dL Total Protein 5.5 L (6.2-8.2) g/dL Albumin 2.9 L (3.8-4.9) g/dL Albumin/Globulin Ratio 1.11 L (1.60-3.17) g/dL 05/30/21 Range/Units 11:56 WBC (4.50-10.00) X 10*3/uL RDW (11.5-14.5) % D-Dimer (<0.60) mg/L FEU BUN (9.0-27.0) mg/dL BUN/Creatinine Ratio (12.00-20.00) Ratio Glucose (70-110) mg/dL POC Glucose (mg/dL) 261 H (75-99) mg/dL Calcium (8.7-10.3) mg/dL AST (14-35) U/L Lactate Dehydrogenase (120-246) U/L C-Reactive Protein (0.00-0.80) mg/dL Total Protein (6.2-8.2) g/dL Albumin (3.8-4.9) g/dL Albumin/Globulin Ratio (1.60-3.17) g/dL <Taylor Ray - Last Filed: 05/30/21 18:13> Subjective Gareth Rothman NP rendered care for this patient independently, reviewed the findings and plan as documented in the note above. I did not physically speak with or examine the patient on this date. A1C 11.3, likely will need long acting and fixed dose insulin on discharge. Objective - Vital Signs Vital signs: Vital Signs Temp 97.8 F 05/30/21 14:00 Pulse 78 05/30/21 14:00 Resp 18 05/30/21 14:00 BP 138/82 05/30/21 14:00 Pulse Ox 97 05/30/21 14:00 Intake & Output 05/29/21 05/30/21 05/30/21 18:59 06:59 18:59 Weight 93.894 kg Other: # Voids 1 # Bowel Movements 1 - Labs CBC & Chem 7: 05/30/21 05:55 05/30/21 05:55 Labs: Abnormal Lab Results - Last 24 Hours (Table) 05/29/21 05/30/21 05/30/21 Range/Units 20:01 05:55 05:55 WBC 11.55 H (4.50-10.00) X 10*3/uL RDW 15.3 H (11.5-14.5) % D-Dimer (<0.60) mg/L FEU BUN (9.0-27.0) mg/dL BUN/Creatinine Ratio (12.00-20.00) Ratio Glucose (70-110) mg/dL POC Glucose (mg/dL) 285 H (75-99) mg/dL Hemoglobin A1c 11.2 H (0.0-6.0) % Calcium (8.7-10.3) mg/dL AST (14-35) U/L Lactate Dehydrogenase (120-246) U/L C-Reactive Protein (0.00-0.80) mg/dL Total Protein (6.2-8.2) g/dL Albumin (3.8-4.9) g/dL Albumin/Globulin Ratio (1.60-3.17) g/dL 05/30/21 05/30/21 05/30/21 Range/Units 05:55 05:55 07:15 WBC (4.50-10.00) X 10*3/uL RDW (11.5-14.5) % D-Dimer 2.82 H (<0.60) mg/L FEU BUN 41.1 H (9.0-27.0) mg/dL BUN/Creatinine Ratio 35.74 H (12.00-20.00) Ratio Glucose 168 H (70-110) mg/dL POC Glucose (mg/dL) 132 H (75-99) mg/dL Hemoglobin A1c (0.0-6.0) % Calcium 8.5 L (8.7-10.3) mg/dL AST 95 H (14-35) U/L Lactate Dehydrogenase 260 H (120-246) U/L C-Reactive Protein 6.50 H (0.00-0.80) mg/dL Total Protein 5.5 L (6.2-8.2) g/dL Albumin 2.9 L (3.8-4.9) g/dL Albumin/Globulin Ratio 1.11 L (1.60-3.17) g/dL 05/30/21 05/30/21 Range/Units 11:56 16:40 WBC (4.50-10.00) X 10*3/uL RDW (11.5-14.5) % D-Dimer (<0.60) mg/L FEU BUN (9.0-27.0) mg/dL BUN/Creatinine Ratio (12.00-20.00) Ratio Glucose (70-110) mg/dL POC Glucose (mg/dL) 261 H 296 H (75-99) mg/dL Hemoglobin A1c (0.0-6.0) % Calcium (8.7-10.3) mg/dL AST (14-35) U/L Lactate Dehydrogenase (120-246) U/L C-Reactive Protein (0.00-0.80) mg/dL Total Protein (6.2-8.2) g/dL Albumin (3.8-4.9) g/dL Albumin/Globulin Ratio (1.60-3.17) g/dL
[2021-05-30] MEDS ORDERED: FUROSEMIDE 10 MG/ML 4 ML VIAL IV STA (16:24)
[2021-05-30 16:41] LABS: Glucose,Whole Blood 296 mg/dL (75-99)
[2021-05-30] MEDS ORDERED: REMDESIVIR 200 MG in SODIUM CHLORIDE 0.9% 250 ML IVPB ONE (17:30)
--- NOTE | 2021-05-30 18:51 | P.CNPUL ---
History of Present Illness Consult date: 05/30/21 Requesting physician: Lui Strauss Reason for consult: pneumonia Chief complaint: Weakness, abdominal pain, and diarrhea. History of present illness: This is a 81-year-old white male with history of multiple medical problems including chronic atrial fibrillation, coronary artery disease and previous CABG, type 2 diabetes, hypertension, dyslipidemia, patient was admitted on 05/28/2021, he had mostly symptoms of weakness, fatigue, abdominal pain, and diarrhea. His symptoms basically started 4 days prior to his presentation. And they have been getting progressively worse. His son evaluated the patient and he was noted to be confused, found him to be extremely weak, hence he brought hi m into the ER. Patient is fully vaccinated, however in spite of full vaccination, patient came in with COVID-19 infection/pneumonia. He had a temp of 101.7, he had O2 saturations 94% on room air, he was also noted to have mild infiltrate in the left lung base. Best appreciated on the CT angiogram of the chest. No evidence of pulmonary embolism. Patient had a bit of leukocytosis with WBC count of 11.55, d-dimer was 2.82. Initial creatinine was 1.2. LDH is not significantly elevated to 60, and C-reactive protein is 6.50. CT angiogram of the chest showed no evidence of pulmonary embolism, it did show left lower lobe atelectasis/pneumonia. And considering the patient had reflux of contrast material into the hepatic vein and inferior vena cava, radiologist raised the possibility of possible right heart failure. Patient was admitted and this consult was initiated. Patient was initially admitted on 05/27, and we were asked to see him on consultation today 05/30. Patient is receiving adequate treatment including ascorbic acid, Eliquis, he is also on Rocephin empirically which I started today because of a relatively high suspicion for superimposed bacterial pneumonia. Patient is on Decadron 6 mg IV push daily, he is also on his usual cardiac meds. And on insulin. Review of Systems Constitutional: Weakness fatigue malaise aches and pains. Positive fever no chills. HEENT: Negative. Pulmonary: No significant shortness of breath, occasional cough, Cardiac: Negative. GI: Diarrhea and vague abdominal discomfort. Genitourinary: Negative Musculoskeletal: Weakness aches and pains Skin: Negative Hematologic: No history of clotting bleeding or bruising although the patient does have chronic atrial fibrillation maintained on Eliquis. Psychiatric: Negative Neurologic: Negative. Past Medical History Past Medical History: Atrial Fibrillation, Coronary Artery Disease (CAD), Heart Failure, Diabetes Mellitus, GERD/Reflux, Hyperlipidemia, Hypertension Additional Past Medical History / Comment(s): IDDM type II, chronic back pain, gout bilateral feet/knees History of Any Multi-Drug Resistant Organisms: None Reported Past Surgical History: Coronary Bypass/CABG, Pacemaker Additional Past Surgical History / Comment(s): 2017 CABG 3 vessel at [facility], pacer/defibrillator 2012, colonoscopy. Past Anesthesia/Blood Transfusion Reactions: No Reported Reaction Type of Cardiac Device: Permanent Pacemaker, AICD Device Placement Date:: 2011 Smoking Status: Former smoker - Past Family History Father Family Medical History: No Reported History Additional Family Medical History / Comment(s): Father was healthy Mother Family Medical History: No Reported History Additional Family Medical History / Comment(s): Mother was healthy. Medications and Allergies Home Medications Medication Instructions Recorded Confirmed Type Amiodarone [Cordarone] 100 mg PO DAILY 05/28/21 05/28/21 History Apixaban [Eliquis] 2.5 mg PO BID 05/28/21 05/28/21 History Aspirin EC [Ecotrin Low Dose] 81 mg PO DAILY 05/28/21 05/28/21 History Atorvastatin [Lipitor] 80 mg PO DAILY 05/28/21 05/28/21 History Cholecalciferol [Vitamin D3 (25 50 mcg PO DAILY 05/28/21 05/28/21 History Mcg = 1000 Iu)] Dulaglutide [Trulicity] 3 mg SQ WE 05/28/21 05/28/21 History Febuxostat 40 mg PO DAILY 05/28/21 05/28/21 History HYDROcodone/APAP 7.5-325MG [[place] 1 tab PO Q6HR PRN 05/28/21 05/28/21 History 7.5-325] Indomethacin [Indocin] 50 mg PO BID PRN 05/28/21 05/28/21 History Insulin Glargine,Hum.rec.anlog 28 unit SQ HS 05/28/21 05/28/21 History [Lantus Solostar Pen] Omeprazole 20 mg PO DAILY 05/28/21 05/28/21 History Torsemide [Demadex] 40 mg PO DAILY 05/28/21 05/28/21 History carvediloL [Coreg] 6.25 mg PO BID 05/28/21 05/28/21 History Allergies Allergy/AdvReac Type Severity Reaction Status Date / Time allopurinol Allergy Unknown Verified 05/28/21 09:22 colchicine Allergy Unknown Verified 05/28/21 09:22 levofloxacin Allergy Unknown Verified 05/28/21 09:22 metformin Allergy Unknown Verified 05/28/21 09:22 metolazone Allergy Unknown Verified 05/28/21 09:22 sertraline Allergy Unknown Verified 05/28/21 09:22 sitagliptin [From Januvia] Allergy Unknown Verified 05/28/21 09:22 Physical Exam Vitals: Vital Signs Temp Pulse Resp BP Pulse Ox 05/30/21 14:00 97.8 F 78 18 138/82 97 05/30/21 05:37 98.0 F 80 17 125/77 97 05/30/21 01:53 97.5 F L 83 21 116/75 97 05/29/21 22:01 97.6 F 80 15 121/75 98 Intake and Output 05/30/21 05/30/21 05/30/21 06:59 14:59 22:59 Output Total 500 Balance -500 Output: Urine 500 General: Revealed a 81-year-old white male, obese, does not seem to be in distress, he is on 2 L nasal cannula. Head: atraumatic, normocephalic Eyes: Janiya, EOMI, nonicteric. ENT: Mucous membranes, no neck masses Neck: No neck masses no JVD no stridor. Mouth: Normal mucous membranes, no ulcerations noted. Cardiovascular: Irregular irregular rhythm, no S3 gallop. 2/6 systolic murmur thought the precordium. Lungs: Symmetrical chest expansion, crackles at the bases. Abdominal: Obese, soft nontender no megaly no rebound no guarding. Ext: No clubbing edema or cyanosis. Neuro: Alert and oriented 3 focal deficits. Psych: Normal mood affect and normal mental status examination. Results - Laboratory Findings CBC and BMP: 05/30/21 05:55 05/30/21 05:55 PT/INR, D-dimer PT 10.5 sec (9.0-12.0) 05/27/21 22:59 INR 1.0 (<1.2) 05/27/21 22:59 D-Dimer 2.82 mg/L FEU (<0.60) H 05/30/21 05:55 Abnormal lab findings: Abnormal Labs 05/27/21 05/27/21 05/27/21 21:21 22:59 22:59 WBC 14.2 H RDW Plt Count 117 L Immature Gran # Neutrophils # 12.5 H Lymphocytes # 0.4 L Eosinophils # D-Dimer Sodium 135 L BUN 58 H Creatinine 1.42 H Est GFR (CKD-EPI)NonAf BUN/Creatinine Ratio Glucose 246 H POC Glucose (mg/dL) Hemoglobin A1c Plasma Lactic Acid Farhad Calcium Total Bilirubin 3.3 H AST 157 H Lactate Dehydrogenase 1234 H C-Reactive Protein 36.6 H Total Protein Albumin 3.2 L Albumin/Globulin Ratio Coronavirus (PCR) Detected A 05/27/21 05/27/21 05/28/21 22:59 22:59 05:33 WBC RDW Plt Count Immature Gran # Neutrophils # Lymphocytes # Eosinophils # D-Dimer Sodium BUN Creatinine Est GFR (CKD-EPI)NonAf BUN/Creatinine Ratio Glucose POC Glucose (mg/dL) 272 H Hemoglobin A1c 11.3 H Plasma Lactic Acid Farhad 2.1 H* Calcium Total Bilirubin AST Lactate Dehydrogenase C-Reactive Protein Total Protein Albumin Albumin/Globulin Ratio Coronavirus (PCR) 05/28/21 05/28/21 05/28/21 08:56 11:59 17:30 WBC RDW Plt Count Immature Gran # Neutrophils # Lymphocytes # Eosinophils # D-Dimer Sodium BUN Creatinine Est GFR (CKD-EPI)NonAf BUN/Creatinine Ratio Glucose POC Glucose (mg/dL) 301 H 477 H 388 H Hemoglobin A1c Plasma Lactic Acid Farhad Calcium Total Bilirubin AST Lactate Dehydrogenase C-Reactive Protein Total Protein Albumin Albumin/Globulin Ratio Coronavirus (PCR) 05/28/21 05/29/21 05/29/21 20:30 06:17 06:17 WBC 13.12 H RDW 15.4 H Plt Count 136 L Immature Gran # 0.06 H Neutrophils # 11.50 H Lymphocytes # 0.64 L Eosinophils # 0 L D-Dimer Sodium BUN 53.8 H Creatinine Est GFR (CKD-EPI)NonAf 51.9 L BUN/Creatinine Ratio 41.38 H Glucose 328 H POC Glucose (mg/dL) 390 H Hemoglobin A1c Plasma Lactic Acid Farhad Calcium 7.9 L Total Bilirubin AST 117 H Lactate Dehydrogenase C-Reactive Protein Total Protein 5.3 L Albumin 2.8 L Albumin/Globulin Ratio 1.12 L Coronavirus (PCR) 05/29/21 05/29/21 05/29/21 07:09 12:24 16:44 WBC RDW Plt Count Immature Gran # Neutrophils # Lymphocytes # Eosinophils # D-Dimer Sodium BUN Creatinine Est GFR (CKD-EPI)NonAf BUN/Creatinine Ratio Glucose POC Glucose (mg/dL) 335 H 370 H 297 H Hemoglobin A1c Plasma Lactic Acid Farhad Calcium Total Bilirubin AST Lactate Dehydrogenase C-Reactive Protein Total Protein Albumin Albumin/Globulin Ratio Coronavirus (PCR) 05/29/21 05/30/21 05/30/21 20:01 05:55 05:55 WBC 11.55 H RDW 15.3 H Plt Count Immature Gran # Neutrophils # Lymphocytes # Eosinophils # D-Dimer Sodium BUN Creatinine Est GFR (CKD-EPI)NonAf BUN/Creatinine Ratio Glucose POC Glucose (mg/dL) 285 H Hemoglobin A1c 11.2 H Plasma Lactic Acid Farhad Calcium Total Bilirubin AST Lactate Dehydrogenase C-Reactive Protein Total Protein Albumin Albumin/Globulin Ratio Coronavirus (PCR) 05/30/21 05/30/21 05/30/21 05:55 05:55 07:15 WBC RDW Plt Count Immature Gran # Neutrophils # Lymphocytes # Eosinophils # D-Dimer 2.82 H Sodium BUN 41.1 H Creatinine Est GFR (CKD-EPI)NonAf BUN/Creatinine Ratio 35.74 H Glucose 168 H POC Glucose (mg/dL) 132 H Hemoglobin A1c Plasma Lactic Acid Farhad Calcium 8.5 L Total Bilirubin AST 95 H Lactate Dehydrogenase 260 H C-Reactive Protein 6.50 H Total Protein 5.5 L Albumin 2.9 L Albumin/Globulin Ratio 1.11 L Coronavirus (PCR) 05/30/21 05/30/21 11:56 16:40 WBC RDW Plt Count Immature Gran # Neutrophils # Lymphocytes # Eosinophils # D-Dimer Sodium BUN Creatinine Est GFR (CKD-EPI)NonAf BUN/Creatinine Ratio Glucose POC Glucose (mg/dL) 261 H 296 H Hemoglobin A1c Plasma Lactic Acid Farhad Calcium Total Bilirubin AST Lactate Dehydrogenase C-Reactive Protein Total Protein Albumin Albumin/Globulin Ratio Coronavirus (PCR) - Diagnostic Findings CT scan - chest: image reviewed (Limited infiltrate and atelectasis in the left lower lobe, the findings on the CT of the chest are not consistent with COVID-19 pneumonia.) Assessment and Plan Assessment: Impression: Acute hypoxic respiratory failure secondary to pneumonia, this is most likely bacterial pneumonia
[2021-05-30] MEDS: INSULIN DETEMIR (LEVEMIR) 100 UNIT/ML SYR SQ SCH (21:28)
[2021-05-30 21:36] LABS: Glucose,Whole Blood 235 mg/dL (75-99)
[2021-05-31] MEDS: INSULIN ASPART (NovoLOG) 100 UNIT/ML VIAL SQ SCH ×8 (07:39→20:31)
[2021-05-31] MEDS: ASPIRIN 81 MG PO SCH (08:23)
[2021-05-31] MEDS: AMIODARONE 100 MG TAB PO SCH (08:23)
[2021-05-31] MEDS: APIXABAN 2.5 MG TABLET PO SCH ×2 (08:23→20:30)
[2021-05-31] MEDS: ZINC SULFATE 220 MG CAP PO SCH (08:23)
[2021-05-31] MEDS: carvediloL 6.25 MG TAB PO SCH ×2 (08:23→20:30)
[2021-05-31] MEDS: ATORVASTATIN 80 MG TAB PO SCH (08:23)
[2021-05-31] MEDS: CHOLECALCIFEROL 25 MCG (1000 IU) TABLET PO SCH (08:23)
[2021-05-31] MEDS: ASCORBIC ACID 500 MG TAB PO SCH (08:23)
[2021-05-31] MEDS: DEXAMETHASONE SOD PHOSPHATE 10 MG/ML 1 ML VIAL IVP SCH (09:00)
[2021-05-31 09:15] LABS: HCT 45.9 % (39.0-53.0); HGB 14.8 gm/dL (13.0-17.5); Hypochromasia Slight; MCH 31.3 pg (25.0-35.0); MCHC 32.2 g/dL (31.0-37.0); Mean Platelet Volume 9.1; RBC 4.73 m/uL (4.30-5.90); RDW 14.9 % (11.5-15.5); WBC 13.5 k/uL (3.8-10.6)
--- NOTE | 2021-05-31 10:00 | ECHOF ---
Referral Reason:CT showing concerns of R-side heart failure MEASUREMENTS -------- HEIGHT: 167.6 cm WEIGHT: 93.9 kg BP: 125/77 RVIDd: 3.3 cm (< 3.3) IVSd: 1.5 cm (0.6 - 1.1) LVIDd: 3.8 cm (3.9 - 5.3) LVPWd: 1.5 cm (0.6 - 1.1) IVSs: 2.1 cm LVIDs: 3.0 cm LVPWs: 2.1 cm LA Diam: 3.6 cm (2.7 - 3.8) Ao Diam: 3.6 cm (2.0 - 3.7) AV Cusp: 2.2 cm (1.5 - 2.6) MV EXCURSION: 19.089 mm (> 18.000) MV EF SLOPE: 135 mm/s (70 - 150) EPSS: 1.4 cm RAP: 5.00 mmHg RVSP: 28.31 mmHg TAPSE: 14.79 mm FINDINGS -------- Paced rhythm. This was a technically adequate study. The left ventricular size is normal. There is moderate concentric left ventricular hypertrophy. O verall left ventricular systolic function is mildly impaired with, an EF between 45 - 50 %. Anterse ptal Hypokinesis The right ventricle is mildly enlarged. The left atrium is normal in size. The right atrium is normal in size. Interatrial and interventricular septum intact. There is mild aortic valve sclerosis. There is trace to mild mitral regurgitation. Mild tricuspid regurgitation present. Right ventricular systolic pressure is normal at < 35 mmHg. The pulmonic valve was not well visualized. The aortic root size is normal. Normal inferior vena cava with normal inspiratory collapse consistent with estimated right atrial pre ssure of 5 mmHg. There is no pericardial effusion. CONCLUSIONS -------- 1. The left ventricular size is normal. 2. There is moderate concentric left ventricular hypertrophy. 3. Overall left ventricular systolic function is mildly impaired with, an EF between 45 - 50 %. 4. Anterseptal Hypokinesis 5. The right ventricle is mildly enlarged. 6. There is mild aortic valve sclerosis. 7. There is trace to mild mitral regurgitation. 8. Mild tricuspid regurgitation present. 9. There is no pericardial effusion. MELT HELPER: Olga Lidia Tom RDCS
[2021-05-31 10:01] LABS: Platelet Count 187 k/uL (150-450)
[2021-05-31 10:05] LABS: ALT 28 U/L (4-49); AST 65 U/L (17-59); African American GFR (CKD) 77 (>60 ml/min/1.73 sqM); Albumin 2.8 g/dL (3.5-5.0); Albumin/Globulin Ratio 0.9; Alkaline Phosphatase 93 U/L (38-126); Anion Gap 10 mmol/L; Blood Urea Nitrogen 35 mg/dL (9-20); C Reactive Protein 8.7 mg/dL (<1.0); Calcium 8.6 mg/dL (8.4-10.2); Carbon Dioxide 27 mmol/L (22-30); Chloride 103 mmol/L (98-107); Glucose 180 mg/dL (74-99); LDH 681 U/L (313-618); Magnesium 1.8 mg/dL (1.6-2.3); Non-African American GFR(CKD) 67 (>60 ml/min/1.73 sqM); Potassium 3.7 mmol/L (3.5-5.1); Sodium 140 mmol/L (137-145); Total Bilirubin 1.3 mg/dL (0.2-1.3); Total Protein 5.8 g/dL (6.3-8.2)
[2021-05-31] MEDS: TORSEMIDE 20 MG TAB PO SCH (10:13)
--- NOTE | 2021-05-31 10:43 | P.PN ---
<Gareth Rothman - Last Filed: 05/31/21 18:51> Subjective Progress Note Date: 05/31/21 Principal diagnosis: Covid pneumonia Hospital course: Patient is a very pleasant 81-year-old male with a past medical history of CAD status post quadruple bypass, paroxysmal atrial fibrillation on anticoagulation with Eliquis, status post pacemaker, congestive heart failure, hypertension, hyperlipidemia, and type 2 diabetes mellitus. He presented to the emergency department on 05/28/21 with a chief complaint of a, abdominal pain, and diarrhea. Upon arrival to the emergency department patient was found to have an elevated temp of 101.7F, tachycardia with a heart rate in the 104, leukocytosis with WBC count of 14.2, and an acute kidney injury with BUN 48, creatinine 1.42, and GFR of 47. Covid PCR was positive. Chest x-ray revealed mild infiltrate at the left lung base. EKG revealing a ventricular paced rhythm of 97 bpm. Patient was admitted under our services with consultation to pulmonology. Physical exam: Patient seen and fully evaluated at the bedside this morning. He continues to report feeling fatigued and short of breath with exertion but reports feeling improvement on SOB at rest. He remains on 2 L O2 via nasal cannula. Respirations even, regular, and unlabored. Patient did have diffuse coarse rhonchi upon assessment. Echocardiogram completed revealing a mildly impaired EF between 45 and 50% and anteroseptal hypokinesis. Patient denies having any he adache, lightheadedness, dizziness, chest pain, or palpitations. Vital signs reviewed and stable. General: Nontoxic, no distress and appears stated age. Obese. Derm: Skin warm and dry, normal coloration for ethnicity. Head: Atraumatic, normocephalic and symmetric. Eyes: EOMs intact, no lid lag, and anicteric sclera Mouth: no lip lesions, mucus membranes moist Cardiovascular: regular rate and rhythm with normal S1S2, systolic murmur, positive posterior tibial pulses bilaterally, and cap refill < 2 seconds. Lungs: Respirations even, regular, and unlabored on 2 L O2 via nasal cannula. Lungs with soft crackles at bases. Abdominal: soft, nontender to palpation, no guarding, no appreciable organomegaly Ext: ROM intact. No gross muscle atrophy, 1+ pitting bilateral lower extremity edema, no contractures Neuro: Speech clear, face symmetrical and CN II-XII grossly intact with no noted focal neuro deficits Psych: Alert and oriented to person, place, time, and situation. Appropriate and pleasant affect. Assessment and Plan of Care: Acute respiratory failure with hypoxia secondary to COVID 19 pneumonia -Oxygenation to be administered and titrated as needed to maintain SPO2 equal to or greater than 90% -Telemetry monitoring. -Continue trending inflammatory markers -Encourage Incentive Spirometry 10-15x hourly while awake -Steroids: Decadron 6 mg daily -Continue vitamin C, Vitamin D, and Zinc. -Pulmonology following, appreciate further recommendations. -DVT prophylaxis with Lovenox. -Strict Droplet plus Contact precautions -Pro-calcitonin elevated at 0.43. Patient placed on IV antibiotics: Rocephin. 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 -Cardiology following -Continue telemetry monitoring -Echocardiogram revealed EF 45-50% with anteroseptal hypokinesis -Patient received 1 dose of Lasix 40 mg IVP and we will resume home medication regimen of Torsemide 40 mg daily. 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 Blood glucose levels in 300 Levemir increased to 30 units nightly and patient placed on fixed dose insulin 3 units before meals at bedtime in addition to NovoLog sliding scale. Lactic acidosis, resolved Paroxysmal atrial fibrillation -Continue anticoagulation with Eliquis. Coronary artery disease status post quadruple bypass and pacemaker placement Hypertension Hyperlipidemia -Monitor vital signs and continue daily medication regimen with Eliquis, aspirin, atorvastatin, amiodarone, carvedilol, and Imdur. CODE STATUS: Full code DVT prophylaxis: Eliquis Discussed with: Patient and RN Anticipated discharge date: Clinical course to determine Anticipated discharge place: Home versus home with home care A total of 40 minutes was spent on the care of this complex patient more than 50% of the time was spent in counseling and care coordination. Objective - Vital Signs Vital signs: Vital Signs Temp 98.2 F 05/31/21 10:17 Pulse 54 L 05/31/21 10:17 Resp 18 05/31/21 10:17 BP 136/77 05/31/21 10:17 Pulse Ox 99 05/31/21 10:17 Intake & Output 05/30/21 05/31/21 05/31/21 18:59 06:59 18:59 Intake Total 1500 Output Total 500 Balance -500 1500 Intake: Oral 1500 Output: Urine 500 Other: Voiding Method Toilet # Voids 5 # Bowel Movements 1 - Labs CBC & Chem 7: 05/31/21 08:45 05/31/21 08:45 Labs: Abnormal Lab Results - Last 24 Hours (Table) 05/30/21 05/30/21 05/30/21 Range/Units 05:55 05:55 11:56 WBC (3.8-10.6) k/uL D-Dimer (<0.60) mg/L FEU BUN 41.1 H (9.0-27.0) mg/dL BUN/Creatinine Ratio 35.74 H (12.00-20.00) Ratio Glucose 168 H (70-110) mg/dL POC Glucose (mg/dL) 261 H (75-99) mg/dL Hemoglobin A1c 11.2 H (0.0-6.0) % Calcium 8.5 L (8.7-10.3) mg/dL AST 95 H (14-35) U/L Lactate Dehydrogenase 260 H (120-246) U/L C-Reactive Protein 6.50 H (0.00-0.80) mg/dL Total Protein 5.5 L (6.2-8.2) g/dL Albumin 2.9 L (3.8-4.9) g/dL Albumin/Globulin Ratio 1.11 L (1.60-3.17) g/dL 05/30/21 05/30/21 05/31/21 Range/Units 16:40 21:25 08:45 WBC 13.5 H (3.8-10.6) k/uL D-Dimer (<0.60) mg/L FEU BUN (9.0-27.0) mg/dL BUN/Creatinine Ratio (12.00-20.00) Ratio Glucose (70-110) mg/dL POC Glucose (mg/dL) 296 H 235 H (75-99) mg/dL Hemoglobin A1c (0.0-6.0) % Calcium (8.7-10.3) mg/dL AST (14-35) U/L Lactate Dehydrogenase (120-246) U/L C-Reactive Protein (0.00-0.80) mg/dL Total Protein (6.2-8.2) g/dL Albumin (3.8-4.9) g/dL Albumin/Globulin Ratio (1.60-3.17) g/dL 05/31/21 05/31/21 Range/Units 08:45 08:45 WBC (3.8-10.6) k/uL D-Dimer 5.67 H (<0.60) mg/L FEU BUN 35 H (9.0-27.0) mg/dL BUN/Creatinine Ratio (12.00-20.00) Ratio Glucose 180 H (70-110) mg/dL POC Glucose (mg/dL) (75-99) mg/dL Hemoglobin A1c (0.0-6.0) % Calcium (8.7-10.3) mg/dL AST 65 H (14-35) U/L Lactate Dehydrogenase 681 H (120-246) U/L C-Reactive Protein 8.7 H (0.00-0.80) mg/dL Total Protein 5.8 L (6.2-8.2) g/dL Albumin 2.8 L (3.8-4.9) g/dL Albumin/Globulin Ratio (1.60-3.17) g/dL <Albert Owens - Last Filed: 06/01/21 16:22> Subjective agree with note and plan Objective - Vital Signs Vital signs: Vital Signs Temp 97.5 F L 06/01/21 14:23 Pulse 80 06/01/21 14:23 Resp 18 06/01/21 14:23 BP 149/83 06/01/21 14:23 Pulse Ox 97 06/01/21 14:23 Intake & Output 05/31/21 06/01/21 06/01/21 18:59 06:59 18:59 Intake Total 222 Balance 222 Weight 93.894 kg Intake: Oral 222 Other: Voiding Method Toilet Toilet Toilet # Voids 8 1 1 # Bowel Movements 1 1 1 - Labs CBC & Chem 7: 06/01/21 06:18 06/01/21 06:18 Labs: Abnormal Lab Results - Last 24 Hours (Table) 05/31/21 05/31/21 05/31/21 Range/Units 08:45 16:52 20:05 WBC (4.50-10.00) X 10*3/uL RDW (11.5-14.5) % D-Dimer (<0.60) mg/L FEU Carbon Dioxide (20.0-27.5) mmol/L BUN (9.0-27.0) mg/dL Est GFR (CKD-EPI)NonAf (60.0-200.0) BUN/Creatinine Ratio (12.00-20.00) Ratio Glucose (70-110) mg/dL POC Glucose (mg/dL) 355 H 418 H (75-99) mg/dL AST (14-35) U/L Lactate Dehydrogenase (120-246) U/L C-Reactive Protein (0.00-0.80) mg/dL Total Protein (6.2-8.2) g/dL Albumin (3.8-4.9) g/dL Albumin/Globulin Ratio (1.60-3.17) g/dL Procalcitonin 0.43 H (0.02-0.09) ng/mL 06/01/21 06/01/21 06/01/21 Range/Units 06:18 06:18 06:18 WBC 13.99 H (4.50-10.00) X 10*3/uL RDW 15.4 H (11.5-14.5) % D-Dimer 2.59 H (<0.60) mg/L FEU Carbon Dioxide 27.9 H (20.0-27.5) mmol/L BUN 33.1 H (9.0-27.0) mg/dL Est GFR (CKD-EPI)NonAf 57.2 L (60.0-200.0) BUN/Creatinine Ratio 27.58 H (12.00-20.00) Ratio Glucose 215 H (70-110) mg/dL POC Glucose (mg/dL) (75-99) mg/dL AST 41 H (14-35) U/L Lactate Dehydrogenase 280 H (120-246) U/L C-Reactive Protein 10.00 H (0.00-0.80) mg/dL Total Protein 5.6 L (6.2-8.2) g/dL Albumin 2.9 L (3.8-4.9) g/dL Albumin/Globulin Ratio 1.07 L (1.60-3.17) g/dL Procalcitonin (0.02-0.09) ng/mL 06/01/21 06/01/21 06/01/21 Range/Units 07:04 10:54 16:10 WBC (4.50-10.00) X 10*3/uL RDW (11.5-14.5) % D-Dimer (<0.60) mg/L FEU Carbon Dioxide (20.0-27.5) mmol/L BUN (9.0-27.0) mg/dL Est GFR (CKD-EPI)NonAf (60.0-200.0) BUN/Creatinine Ratio (12.00-20.00) Ratio Glucose (70-110) mg/dL POC Glucose (mg/dL) 230 H 249 H 354 H (75-99) mg/dL AST (14-35) U/L Lactate Dehydrogenase (120-246) U/L C-Reactive Protein (0.00-0.80) mg/dL Total Protein (6.2-8.2) g/dL Albumin (3.8-4.9) g/dL Albumin/Globulin Ratio (1.60-3.17) g/dL Procalcitonin (0.02-0.09) ng/mL Microbiology - Last 24 Hours (Table) 06/01/21 02:00 Sputum Culture - Preliminary Sputum
--- NOTE | 2021-05-31 11:08 | P.CRDCN ---
History of Present Illness Consult date: 05/31/21 History of present illness: CHIEF COMPLAINT: Right-sided heart failure HISTORY OF PRESENT ILLNESS: This is a 81-year-old male with a past medical history significant for coronary artery disease with previous CABG, paroxysmal atrial fibrillation, permanent pacemaker insertion, congestive heart failure, hypertension, hyperlipidemia, and diabetes. Patient follows with a cable technician in [place]. We have been asked to see the patient in consultation for CHF. Patient presented to the hospital with abdominal pain and diarrhea. He was also febrile. Patient was found to be positive for Covid. Patient underwent CTA yesterday revealing cardiomegaly, left lower lobe pneumonia versus atelectasis, aortic aneurysm, and possible right-sided heart failure. Patient's BNP was normal or patient's age at 89. Echocardiogram completed revealing ejection fraction 45-50%, anteroseptal hypokinesis, trace to mild mitral regurgitation, and mild tricuspid regurgitation. DIAGNOSTICS: EKG reveals atrial sensed ventricular paced rhythm Chest xray some mild infiltrate or atelectasis left lung base. No heart failu re. Laboratory data: WBC 13.5. Hemoglobin 14.8. Platelet count 187. Sodium 140. Potassium 3.7. BUN 35. Creatinine 1.06. Pro BNP 624. Current home cardiac medications include Demadex 40 mg daily, carvedilol 6.25 mg twice a day, Lipitor 80 g daily, Eliquis 2.5 mg twice a day, and amiodarone 100 mg daily REVIEW OF SYSTEMS: Thorough review of systems not completed secondary to limited evaluation/examination due to Covid19 PHYSICAL EXAM: Thorough physical exam not completed secondary to limited evaluation/examination due to Covid19 ASSESSMENT: Covid 19 pneumonia Acute hypoxic respiratory failure Paroxysmal atrial fibrillation, and acquainted with Eliquis Coronary artery disease with previous CABG History of permanent pacemaker plantation Chronic diastolic congestive heart failure, currently appears euvolemic Hypertension Hyperlipidemia Diabetes PLAN: Continue current cardiac medications Patient clinically euvolemic. Will resume patient's home dose of Demadex Patient currently stable from a cardiac standpoint We will follow on an as needed basis. Please call with questions or concerns. Nurse practitioner note has been reviewed by physician. Signing provider agrees with the documented findings, assessment, and plan of care. Past Medical History Past Medical History: Atrial Fibrillation, Coronary Artery Disease (CAD), Heart Failure, Diabetes Mellitus, GERD/Reflux, Hyperlipidemia, Hypertension Additional Past Medical History / Comment(s): IDDM type II, chronic back pain, gout bilateral feet/knees History of Any Multi-Drug Resistant Organisms: None Reported Past Surgical History: Coronary Bypass/CABG, Pacemaker Additional Past Surgical History / Comment(s): 2016 CABG 3 vessel at [facility], pacer/defibrillator 2011, colonoscopy. Past Anesthesia/Blood Transfusion Reactions: No Reported Reaction Type of Cardiac Device: Permanent Pacemaker, AICD Device Placement Date:: 2011 Smoking Status: Former smoker - Past Family History Father Family Medical History: No Reported History Additional Family Medical History / Comment(s): Father was healthy Mother Family Medical History: No Reported History Additional Family Medical History / Comment(s): Mother was healthy. Medications and Allergies Home Medications Medication Instructions Recorded Confirmed Type Amiodarone [Cordarone] 100 mg PO DAILY 05/28/21 05/28/21 History Apixaban [Eliquis] 2.5 mg PO BID 05/28/21 05/28/21 History Aspirin EC [Ecotrin Low Dose] 81 mg PO DAILY 05/28/21 05/28/21 History Atorvastatin [Lipitor] 80 mg PO DAILY 05/28/21 05/28/21 History Cholecalciferol [Vitamin D3 (25 50 mcg PO DAILY 05/28/21 05/28/21 History Mcg = 1000 Iu)] Dulaglutide [Trulicity] 3 mg SQ WE 05/28/21 05/28/21 History Febuxostat 40 mg PO DAILY 05/28/21 05/28/21 History HYDROcodone/APAP 7.5-325MG [[place] 1 tab PO Q6HR PRN 05/28/21 05/28/21 History 7.5-325] Indomethacin [Indocin] 50 mg PO BID PRN 05/28/21 05/28/21 History Insulin Glargine,Hum.rec.anlog 28 unit SQ HS 05/28/21 05/28/21 History [Lantus Solostar Pen] Omeprazole 20 mg PO DAILY 05/28/21 05/28/21 History Torsemide [Demadex] 40 mg PO DAILY 05/28/21 05/28/21 History carvediloL [Coreg] 6.25 mg PO BID 05/28/21 05/28/21 History Allergies Allergy/AdvReac Type Severity Reaction Status Date / Time allopurinol Allergy Unknown Verified 05/28/21 09:22 colchicine Allergy Unknown Verified 05/28/21 09:22 levofloxacin Allergy Unknown Verified 05/28/21 09:22 metformin Allergy Unknown Verified 05/28/21 09:22 metolazone Allergy Unknown Verified 05/28/21 09:22 sertraline Allergy Unknown Verified 05/28/21 09:22 sitagliptin [From Januvia] Allergy Unknown Verified 05/28/21 09:22 Physical Exam Vitals: Vital Signs Temp Pulse Resp BP Pulse Ox 05/31/21 10:17 98.2 F 54 L 18 136/77 99 05/31/21 02:00 97.0 F L 80 19 146/90 99 05/30/21 22:00 98.1 F 80 17 133/83 98 05/30/21 19:37 18 05/30/21 18:30 98.1 F 75 17 149/83 98 05/30/21 14:00 97.8 F 78 18 138/82 97 Intake and Output 05/30/21 05/31/21 05/31/21 22:59 06:59 14:59 Intake Total 1500 Output Total 500 Balance -500 1500 Intake: Oral 1500 Output: Urine 500 Other: Voiding Method Toilet # Voids 3 5 # Bowel Movements 1 Results 05/31/21 08:45 05/31/21 08:45 Cardiac Enzymes 05/30/21 05/31/21 Range/Units 05:55 08:45 AST 95 H 65 H (14-35) U/L Lactate Dehydrogenase 260 H 681 H (120-246) U/L CBC 05/31/21 Range/Units 08:45 WBC 13.5 H (3.8-10.6) k/uL RBC 4.73 (4.30-5.90) m/uL Hgb 14.8 (13.0-17.5) gm/dL Hct 45.9 (39.0-53.0) % Plt Count 187 D (150-450) k/uL Comprehensive Metabolic Panel 05/30/21 05/31/21 Range/Units 05:55 08:45 Sodium 141 140 (135-145) mmol/L Potassium 4.0 3.7 (3.5-5.5) mmol/L Chloride 106 103 (96-109) mmol/L Carbon Dioxide 24.2 27 (20.0-27.5) mmol/L BUN 41.1 H 35 H (9.0-27.0) mg/dL Creatinine 1.2 1.06 (0.6-1.5) mg/dL Glucose 168 H 180 H (70-110) mg/dL Calcium 8.5 L 8.6 (8.7-10.3) mg/dL AST 95 H 65 H (14-35) U/L ALT 31 28 (10-49) U/L Alkaline Phosphatase 91 93 (41-126) U/L Total Protein 5.5 L 5.8 L (6.2-8.2) g/dL Albumin 2.9 L 2.8 L (3.8-4.9) g/dL Current Medications Generic Name Dose Route Start Last Admin Trade Name Freq PRN Reason Stop Dose Admin Acetaminophen 650 mg 05/28/21 00:21 Acetaminophen Tab 325 Mg Tab PO Q6HR PRN Mild Pain or Fever > 100.5 Amiodarone HCl 100 mg 05/28/21 09:00 05/31/21 08:23 Amiodarone 100 Mg Tab PO 100 mg DAILY KAREEN Administration Apixaban 2.5 mg 05/28/21 09:00 05/31/21 08:23 Apixaban 2.5 Mg Tablet PO 2.5 mg BID KAREEN Administration Protocol Ascorbic Acid 1,000 mg 05/28/21 09:00 05/31/21 08:23 Ascorbic Acid 500 Mg Tab PO 1,000 mg DAILY KAREEN Administration Aspirin 81 mg 05/28/21 09:00 05/31/21 08:23 Aspirin 81 Mg PO 81 mg DAILY KAREEN Administration Atorvastatin Calcium 80 mg 05/28/21 09:00 05/31/21 08:23 Atorvastatin 80 Mg Tab PO 80 mg DAILY KAREEN Administration Carvedilol 6.25 mg 05/28/21 09:00 05/31/21 08:23 Carvedilol 6.25 Mg Tab PO 6.25 mg BID KAREEN Administration Cholecalciferol 125 mcg 05/28/21 09:00 05/31/21 08:23 Cholecalciferol 25 Mcg (1000 Iu) Tablet PO 125 mcg DAILY KAREEN Administration Dexamethasone Sodium Phosphate 6 mg 05/28/21 09:00 05/31/21 09:00 Dexamethasone Sod Phosphate 10 Mg/Ml 1 Ml Vial IVP 6 mg DAILY KAREEN Administration Remdesivir 100 mg/ Sodium 250 mls @ 250 mls/hr 05/31/21 17:00 Chloride IVPB 06/03/21 17:59 DAILY@1700 KAREEN Ceftriaxone Sodium 1 gm/ 50 mls @ 100 mls/hr 05/30/21 17:00 05/31/21 08:22 Sodium Chloride IVPB 100 mls/hr Q24HR KAREEN Administration Ibuprofen 400 mg 05/28/21 00:21 Ibuprofen 400 Mg Tab PO Q6HR PRN Mild Pain or Fever > 100.5 Insulin Aspart 0 unit 05/28/21 07:30 05/31/21 07:40 Insulin Aspart (Novolog) 100 Unit/Ml Vial SQ Not Given ACHS [facility] Protocol Insulin Aspart 3 unit 05/29/21 17:30 05/31/21 07:39 Insulin Aspart (Novolog) 100 Unit/Ml Vial SQ Not Given ACHS [facility] Protocol Insulin Detemir 30 unit 05/29/21 21:00 05/30/21 21:28 Insulin Detemir (Levemir) 100 Unit/Ml Syr SQ 30 unit HS KAREEN Administration Morphine Sulfate 4 mg 05/28/21 00:21 Morphine Sulfate 4 Mg/Ml Syringe IV Q4HR PRN Severe Pain Naloxone HCl 0.2 mg 05/28/21 00:21 Naloxone 0.4 Mg/Ml 1 Ml Vial IV Q2M PRN Opioid Reversal Ondansetron HCl 4 mg 05/28/21 00:21 Ondansetron 4 Mg/2 Ml Vial IVP Q8HR PRN Nausea And Vomiting Torsemide 40 mg 05/31/21 09:30 05/31/21 10:13 Torsemide 20 Mg Tab PO 40 mg DAILY KAREEN Administration Zinc Sulfate 220 mg 05/28/21 09:00 05/31/21 08:23 Zinc Sulfate 220 Mg Cap PO 220 mg DAILY KAREEN Administration Intake and Output 05/30/21 05/31/21 05/31/21 22:59 06:59 14:59 Intake Total 1500 Output Total 500 Balance -500 1500 Intake: Oral 1500 Output: Urine 500 Other: Voiding Method Toilet # Voids 3 5 # Bowel Movements 1 05/31/21 08:45 05/31/21 08:45
[2021-05-31 11:44] LABS: Glucose,Whole Blood 96 mg/dL (75-99)
[2021-05-31 11:45] LABS: Glucose,Whole Blood 227 mg/dL (75-99)
--- NOTE | 2021-05-31 11:49 | P.PN ---
Subjective Progress Note Date: 05/31/21 Principal diagnosis: Shortness of breath This is a 81-year-old white male with history of multiple medical problems including chronic atrial fibrillation, coronary artery disease and previous CABG, type 2 diabetes, hypertension, dyslipidemia, patient was admitted on 05/28/2021, he had mostly symptoms of weakness, fatigue, abdominal pain, and diarrhea. His symptoms basically started 4 days prior to his presentation. And they have been getting progressively worse. His son evaluated the patient and he was noted to be confused, found him to be extremely weak, hence he brought him into the ER. Patient is fully vaccinated, however in spite of full vaccination, patient came in with COVID-19 infection/pneumonia. He had a temp of 101.7, he had O2 saturations 94% on room air, he was also noted to have mild infiltrate in the left lung base. Best appreciated on the CT angiogram of the chest. No evidence of pulmonary embolism. Patient had a bit of leukocytosis with WBC count of 11.55, d-dimer was 2.82. Initial creatinine was 1.2. LDH is not significantly elevated to 60, and C-reactive protein is 6.50. CT angiogram of the chest showed no evidence of pulmonary embolism, it did show left lower lobe atelectasis/pneumonia. And considering the patient had reflux of contrast material into the hepatic vein and inferior vena cava, radiologist raised the possibility of possible right heart failure. Patient was admitted and this consult was initiated. Patient was initially admitted on 05/27, and we were asked to see him on consultation today 05/30. Patient is receiving adequate treatment including ascorbic acid, Eliquis, he is also on Rocephin empirically which I started today because of a relatively high suspicion for superimposed bacterial pneumonia. Patient is on Decadron 6 mg IV push daily, he is also on his usual cardiac meds. And on insulin. On 05/31/2021 patient is in follow-up on medical surgical floor, he is up in the chair, breathing comfortably, he is on Tuesdays of oxygen pulse ox is 99%, denies any acute distress, he has been coughing, and bringing up white and sometimes yellow colored phlegm, is currently on Rocephin for possibly communi ty-acquired pneumonia, he CTA chest was negative for PE, it did show left lower lobe atelectasis/consolidation. His vital 7 stable, no altered mentation. Seems to be improving, no acute events overnight. Today's labs have been reviewed showing white blood cell count of 13.5, hemoglobin of 14.8. D-dimer 5.67, electrodes are within normal limits, BUN of 35, creatinine is 1.06. Patient is receiving Decadron 6 mg daily, she is on home dose Eliquis 20 half milligrams twice daily, he is on multivitamins, and patient was started on Remdesivir yesterday Objective - Vital Signs Vital signs: Vital Signs Temp 98.2 F 05/31/21 10:17 Pulse 54 L 05/31/21 10:17 Resp 18 05/31/21 10:17 BP 136/77 05/31/21 10:17 Pulse Ox 99 05/31/21 10:17 Intake & Output 05/30/21 05/31/21 05/31/21 18:59 06:59 18:59 Intake Total 1500 Output Total 500 Balance -500 1500 Intake: Oral 1500 Output: Urine 500 Other: Voiding Method Toilet # Voids 5 # Bowel Movements 1 - Exam GENERAL EXAM: Alert, very pleasant, 81-year-old white male, sitting up in the recliner, currently on 4 L of oxygen with pulse ox of 99% comfortable in no appa rent distress. HEAD: Normocephalic/atraumatic. EYES: Normal reaction of pupils, equal size. Conjunctiva pink, sclera white. NOSE: Clear with pink turbinates. THROAT: No erythema or exudates. NECK: No masses, no JVD, no thyroid enlargement, no adenopathy. CHEST: No chest wall deformity. Symmetrical expansion. LUNGS: Equal air entry with no crackles, no wheezing CVS: Regular rate and rhythm, normal S1 and S2, no gallops, no murmurs, no rubs ABDOMEN: Soft, nontender. No hepatosplenomegaly, normal bowel sounds, no guarding or rigidity. EXTREMITIES: No clubbing, no edema, no cyanosis, 2+ pulses and upper and lower extremities. MUSCULOSKELETAL: Muscle strength and tone normal. SPINE: No scoliosis or deformity SKIN: No rashes CENTRAL NERVOUS SYSTEM: Alert and oriented -3. No focal deficits, tone is normal in all 4 extremities. PSYCHIATRIC: Alert and oriented -3. Appropriate affect. Intact judgment and insight. - Labs CBC & Chem 7: 05/31/21 08:45 05/31/21 08:45 Labs: Abnormal Lab Results - Last 24 Hours (Table) 05/30/21 05/30/21 05/30/21 Range/Units 05:55 05:55 11:56 WBC (3.8-10.6) k/uL D-Dimer (<0.60) mg/L FEU BUN 41.1 H (9.0-27.0) mg/dL BUN/Creatinine Ratio 35.74 H (12.00-20.00) Ratio Glucose 168 H (70-110) mg/dL POC Glucose (mg/dL) 261 H (75-99) mg/dL Hemoglobin A1c 11.2 H (0.0-6.0) % Calcium 8.5 L (8.7-10.3) mg/dL AST 95 H (14-35) U/L Lactate Dehydrogenase 260 H (120-246) U/L C-Reactive Protein 6.50 H (0.00-0.80) mg/dL Total Protein 5.5 L (6.2-8.2) g/dL Albumin 2.9 L (3.8-4.9) g/dL Albumin/Globulin Ratio 1.11 L (1.60-3.17) g/dL 05/30/21 05/30/21 05/31/21 Range/Units 16:40 21:25 08:45 WBC 13.5 H (3.8-10.6) k/uL D-Dimer (<0.60) mg/L FEU BUN (9.0-27.0) mg/dL BUN/Creatinine Ratio (12.00-20.00) Ratio Glucose (70-110) mg/dL POC Glucose (mg/dL) 296 H 235 H (75-99) mg/dL Hemoglobin A1c (0.0-6.0) % Calcium (8.7-10.3) mg/dL AST (14-35) U/L Lactate Dehydrogenase (120-246) U/L C-Reactive Protein (0.00-0.80) mg/dL Total Protein (6.2-8.2) g/dL Albumin (3.8-4.9) g/dL Albumin/Globulin Ratio (1.60-3.17) g/dL 05/31/21 05/31/21 Range/Units 08:45 08:45 WBC (3.8-10.6) k/uL D-Dimer 5.67 H (<0.60) mg/L FEU BUN 35 H (9.0-27.0) mg/dL BUN/Creatinine Ratio (12.00-20.00) Ratio Glucose 180 H (70-110) mg/dL POC Glucose (mg/dL) (75-99) mg/dL Hemoglobin A1c (0.0-6.0) % Calcium (8.7-10.3) mg/dL AST 65 H (14-35) U/L Lactate Dehydrogenase 681 H (120-246) U/L C-Reactive Protein 8.7 H (0.00-0.80) mg/dL Total Protein 5.8 L (6.2-8.2) g/dL Albumin 2.8 L (3.8-4.9) g/dL Albumin/Globulin Ratio (1.60-3.17) g/dL Assessment and Plan Plan: Assessment: #1. Acute hypoxic respiratory failure most likely related to acute bacterial pneumonia, likely community acquired pneumonia. Patient's presentation was more consistent with pneumonia, sepsis. Patient is currently on Rocephin. Pro- calcitonin level is pending, patient is also COVID-19 positive however his chest x-ray and CT chest findings are more consistent with left lower lobe pneumonia. Patient is fully vaccinated for COVID-19 with 2 injections of motor not plus the booster, nevertheless he was within the window for Remdesivir he was started on it yesterday on 05/30/2021 #2. Acute COVID-19 infection, chest x-ray and CT angios of the chest findings showing left lower lung atelectasis/consolidation, more consistent with community-acquired pneumonia rather than COVID-19 related pneumonia #3. No CTA evidence of pulmonary embolism #4. Chronic A. fib on Eliquis #5. Coronary artery disease #6. Chronic CHF, with a diastolic dysfunction #7. Diabetes mellitus type 2 #8. Hypertension #9. Hyperlipidemia #10. GERD/reflux #11. Permanent pacemaker/AICD #12. Former smoker Plan: We will continue Rocephin We'll send a sputum culture Continue Remdesivir, continue Decadron Continue home dose Eliquis Clinically patient is feeling better, he is on 2 L of oxygen, Vital signs are stable We'll continue to follow his clinical course I performed a history & physical examination of the patient and discussed their management with my nurse practitioner, Yana Hayes. I reviewed the nurse practitioner's note and agree with the documented findings and plan of care. Lung sounds are positive for dim breath sounds throughout the lung ortiz. The findings and the impression was discussed with the patient. I attest to the documentation by the nurse practitioner. Time with Patient: Less than 30
[2021-05-31] MEDS ORDERED: LORazepam 2 MG/ML INJ IV PRN ×3 (16:03)
[2021-05-31 16:52] LABS: Glucose,Whole Blood 355 mg/dL (75-99)
[2021-05-31] MEDS: THIAMINE 100 MG TAB PO SCH (16:56)
[2021-05-31] MEDS: REMDESIVIR 100 MG in SODIUM CHLORIDE 0.9% 250 ML IVPB SCH (17:42)
[2021-05-31 20:08] LABS: Glucose,Whole Blood 418 mg/dL (75-99)
[2021-05-31] MEDS: INSULIN DETEMIR (LEVEMIR) 100 UNIT/ML SYR SQ SCH (20:31)
[2021-05-31] MEDS: THIAMINE 100 MG/ML 2 ML VIAL IM STA ×2 (22:26→22:31)
[2021-06-01 07:05] LABS: Glucose,Whole Blood 230 mg/dL (75-99)
[2021-06-01] MEDS: INSULIN ASPART (NovoLOG) 100 UNIT/ML VIAL SQ SCH ×8 (07:48→20:25)
[2021-06-01] MEDS: CHOLECALCIFEROL 25 MCG (1000 IU) TABLET PO SCH (07:49)
[2021-06-01] MEDS: APIXABAN 2.5 MG TABLET PO SCH ×2 (07:49→20:25)
[2021-06-01] MEDS: carvediloL 6.25 MG TAB PO SCH ×2 (07:50→20:25)
[2021-06-01] MEDS: DEXAMETHASONE SOD PHOSPHATE 10 MG/ML 1 ML VIAL IVP SCH (07:50)
[2021-06-01] MEDS: TORSEMIDE 20 MG TAB PO SCH (07:50)
[2021-06-01] MEDS: ATORVASTATIN 80 MG TAB PO SCH (07:50)
[2021-06-01] MEDS: THIAMINE 100 MG TAB PO SCH ×2 (07:50→17:03)
[2021-06-01] MEDS: ASCORBIC ACID 500 MG TAB PO SCH (07:50)
[2021-06-01] MEDS: ASPIRIN 81 MG PO SCH (07:50)
[2021-06-01] MEDS: ZINC SULFATE 220 MG CAP PO SCH (07:50)
[2021-06-01] MEDS: AMIODARONE 100 MG TAB PO SCH (07:50)
--- NOTE | 2021-06-01 08:38 | XR ---
EXAMINATION TYPE: XR chest 1V portable DATE OF EXAM: 06/01/2021 COMPARISON: Chest x-ray 05/27/2021 HISTORY: Shortness of breath, Covid TECHNIQUE: Single frontal view of the chest is obtained. FINDINGS: Cardiac mediastinal silhouette is stable, heart is enlarged. Generator is present in the l eft pectoral region, there are leads in the right atrium and ventricle. Coronary sinus lead is presen t. Patient is post median sternotomy. No evident pneumothorax or pleural effusion. There are overlyin g artifacts. Some minimal patchy basilar density is noted on the left. IMPRESSION: Cardiomegaly and postop changes, left lower lobe atelectasis versus pneumonia or possibl y scarring
[2021-06-01] MEDS ORDERED: HALOPERIDOL LACTATE 5 MG/ML 1 ML VIAL IM PRN (09:11)
[2021-06-01 09:33] LABS: HCT 42.5 % (39.6-50.0); HGB 13.9 g/dL (13.0-17.0); MCH 30.1 pg (27.0-32.0); MCHC 32.7 g/dL (32.0-37.0); Mean Platelet Volume 11.6 fL (9.5-12.2); Platelet Count 231 X 10*3/uL (140-440); RBC 4.62 X 10*6/uL (4.40-5.60); RDW 15.4 % (11.5-14.5); WBC 13.99 X 10*3/uL (4.50-10.00)
--- NOTE | 2021-06-01 09:53 | CT ---
EXAMINATION TYPE: CT brain wo con DATE OF EXAM: 06/01/2021 HISTORY: altered mental status CT DLP: 1099.4 mGycm. Automated Exposure Control for Dose Reduction was Utilized. TECHNIQUE: CT scan of the head is performed without contrast. COMPARISON: None. FINDINGS: There is no acute intracranial hemorrhage or midline shift identified. There is mild-to-m oderate diffuse ventricular and sulcal prominence consistent with diffuse age-related cerebral atroph y. There is moderate to severe low-attenuation in the periventricular white matter consistent with c hronic small vessel ischemic change. Bilateral basal ganglia calcifications. Patchy cerumen in the bi lateral external auditory canals. The globes are intact and the visualized sinuses are clear. IMPRESSION: No acute intracranial hemorrhage or midline shift. There is mild to moderate diffuse ag e-related cerebral atrophy and moderate to severe chronic small vessel ischemic change noted.
[2021-06-01 10:57] LABS: Glucose,Whole Blood 249 mg/dL (75-99)
--- NOTE | 2021-06-01 11:30 | P.PN ---
Subjective Progress Note Date: 06/01/21 Principal diagnosis: Shortness of breath This is a 81-year-old white male with history of multiple medical problems including chronic atrial fibrillation, coronary artery disease and previous CABG, type 2 diabetes, hypertension, dyslipidemia, patient was admitted on 05/28/2021, he had mostly symptoms of weakness, fatigue, abdominal pain, and diarrhea. His symptoms basically started 4 days prior to his presentation. And they have been getting progressively worse. His son evaluated the patient and he was noted to be confused, found him to be extremely weak, hence he brought him into the ER. Patient is fully vaccinated, however in spite of full vaccination, patient came in with COVID-19 infection/pneumonia. He had a temp of 101.7, he had O2 saturations 94% on room air, he was also noted to have mild infiltrate in the left lung base. Best appreciated on the CT angiogram of the chest. No evidence of pulmonary embolism. Patient had a bit of leukocytosis with WBC count of 11.55, d-dimer was 2.82. Initial creatinine was 1.2. LDH is not significantly elevated to 60, and C-reactive protein is 6.50. CT angiogram of the chest showed no evidence of pulmonary embolism, it did show left lower lobe atelectasis/pneumonia. And considering the patient had reflux of contrast material into the hepatic vein and inferior vena cava, radiologist raised the possibility of possible right heart failure. Patient was admitted and this consult was initiated. Patient was initially admitted on 05/27, and we were asked to see him on consultation today 05/30. Patient is receiving adequate treatment including ascorbic acid, Eliquis, he is also on Rocephin empirically which I started today because of a relatively high suspicion for superimposed bacterial pneumonia. Patient is on Decadron 6 mg IV push daily, he is also on his usual cardiac meds. And on insulin. On 05/31/2021 patient is in follow-up on medical surgical floor, he is up in the chair, breathing comfortably, he is on Tuesdays of oxygen pulse ox is 99%, denies any acute distress, he has been coughing, and bringing up white and sometimes yellow colored phlegm, is currently on Rocephin for possibly communi ty-acquired pneumonia, he CTA chest was negative for PE, it did show left lower lobe atelectasis/consolidation. His vital 7 stable, no altered mentation. Seems to be improving, no acute events overnight. Today's labs have been reviewed showing white blood cell count of 13.5, hemoglobin of 14.8. D-dimer 5.67, electrodes are within normal limits, BUN of 35, creatinine is 1.06. Patient is receiving Decadron 6 mg daily, she is on home dose Eliquis 20 half milligrams twice daily, he is on multivitamins, and patient was started on Remdesivir yesterday On 06/01/2021 patient seen in follow-up on medical surgical floor, he is awake and alert, apparently last night he became confused, he was restless, he was quite compulsive, getting up out of bed unassisted, his ex- was contacted and she stated that patient has a history of drinking. He was started on CIWA protocol. This morning he is awake and alert, in no acute distress, he is oriented 3, he absolutely denies drinking, no alcohol, no illicit drugs. He states he only drinks [place]. Denies any headaches, no diaphoresis, no shakes. Nursing states his mentation has been fluctuating, with periods of confusion. No focal neurological deficit has been noted, patient is breathing comfortably, he is on room air right now, his pulse ox is 97%, he is afebrile, he does have congestive cough, he is bringing up some clear colored sputum, he is on day 3 of his Remdesivir treatment, breathing very comfortably, his chest x-ray today shows cardiomegaly, left lower lobe atelectasis versus pneumonia or possibly scarring. Brain CT has been completed showing no acute intracranial hemorrhage or midline shift, mild to moderate diffuse age-related cerebral atrophy and moderate to severe chronic small vessel ischemic change noted. Patient continues on Decadron 6 mg daily, Rocephin continues for possibility of community acquired pneumonia, he is on home dose Eliquis and Cordarone 4 history of atrial fibrillation. CIWA protocol has been added, we'll add Haldol as needed for episodes of confusion Objective - Vital Signs Vital signs: Vital Signs Temp 98.1 F 06/01/21 09:49 Pulse 78 06/01/21 09:49 Resp 20 06/01/21 09:49 BP 150/88 06/01/21 09:49 Pulse Ox 97 06/01/21 09:49 Intake & Output 05/31/21 06/01/21 06/01/21 18:59 06:59 18:59 Intake Total 222 Balance 222 Intake: Oral 222 Other: Voiding Method Toilet Toilet Toilet # Voids 8 1 1 # Bowel Movements 1 1 1 - Exam GENERAL EXAM: Alert, very pleasant, 81-year-old white male, sitting up in the recliner, currently on room air with a pulse ox of 97% comfortable in no apparent distress. HEAD: Normocephalic/atraumatic. EYES: Normal reaction of pupils, equal size. Conjunctiva pink, sclera white. NOSE: Clear with pink turbinates. THROAT: No erythema or exudates. NECK: No masses, no JVD, no thyroid enlargement, no adenopathy. CHEST: No chest wall deformity. Symmetrical expansion. LUNGS: Equal air entry with no crackles, no wheezing CVS: Regular rate and rhythm, normal S1 and S2, no gallops, no murmurs, no rubs ABDOMEN: Soft, nontender. No hepatosplenomegaly, normal bowel sounds, no guarding or rigidity. EXTREMITIES: No clubbing, no edema, no cyanosis, 2+ pulses and upper and lower extremities. MUSCULOSKELETAL: Muscle strength and tone normal. SPINE: No scoliosis or deformity SKIN: No rashes CENTRAL NERVOUS SYSTEM: Alert and oriented -3. No focal deficits, tone is normal in all 4 extremities. PSYCHIATRIC: Alert and oriented -3. Appropriate affect. Intact judgment and insight. - Labs CBC & Chem 7: 06/01/21 06:18 05/31/21 08:45 Labs: Abnormal Lab Results - Last 24 Hours (Table) 05/31/21 05/31/21 05/31/21 Range/Units 08:45 11:44 16:52 WBC (4.50-10.00) X 10*3/uL RDW (11.5-14.5) % D-Dimer (<0.60) mg/L FEU POC Glucose (mg/dL) 227 H 355 H (75-99) mg/dL Lactate Dehydrogenase (120-246) U/L C-Reactive Protein (0.00-0.80) mg/dL Procalcitonin 0.43 H (0.02-0.09) ng/mL 05/31/21 06/01/21 06/01/21 Range/Units 20:05 06:18 06:18 WBC 13.99 H (4.50-10.00) X 10*3/uL RDW 15.4 H (11.5-14.5) % D-Dimer 2.59 H (<0.60) mg/L FEU POC Glucose (mg/dL) 418 H (75-99) mg/dL Lactate Dehydrogenase (120-246) U/L C-Reactive Protein (0.00-0.80) mg/dL Procalcitonin (0.02-0.09) ng/mL 06/01/21 06/01/21 06/01/21 Range/Units 06:18 07:04 10:54 WBC (4.50-10.00) X 10*3/uL RDW (11.5-14.5) % D-Dimer (<0.60) mg/L FEU POC Glucose (mg/dL) 230 H 249 H (75-99) mg/dL Lactate Dehydrogenase 280 H (120-246) U/L C-Reactive Protein 10.00 H (0.00-0.80) mg/dL Procalcitonin (0.02-0.09) ng/mL Microbiology - Last 24 Hours (Table) 06/01/21 02:00 Sputum Culture - Preliminary Sputum Assessment and Plan Plan: Assessment: #1. Acute hypoxic respiratory failure most likely related to acute bacterial pneumonia, likely community acquired pneumonia. Patient's presentation was more consistent with pneumonia, sepsis. Patient is currently on Rocephin. Pro- calcitonin level is pending, patient is also COVID-19 positive however his chest x-ray and CT chest findings are more consistent with left lower lobe pneumonia. Patient is fully vaccinated for COVID-19 with 2 injections of motor not plus the booster, nevertheless he was within the window for Remdesivir he was started on it on 05/30/2021 #2. Acute COVID-19 infection, chest x-ray and CT angios of the chest findings showing left lower lung atelectasis/consolidation, more consistent with community-acquired pneumonia rather than COVID-19 related pneumonia #3. No CTA evidence of pulmonary embolism #4. Chronic A. fib on Eliquis #5. Coronary artery disease #6. Chronic CHF, with a diastolic dysfunction #7. Diabetes mellitus type 2 #8. Hypertension #9. Hyperlipidemia #10. GERD/reflux #11. Permanent pacemaker/AICD #12. Former smoker #13. Questionable history of alcoholism, currently on [facility] protocol #14. Altered mental status, with fluctuating delirium, brain CT has been completed showing no acute intracranial process, and showing mild to moderate diffuse age-related cerebral atrophy and moderate to severe chronic small vessel ischemic changes Plan: Continue current medical treatment Continue Remdesivir, today is day 3 of treatment Continue Decadron, home dose Eliquis and empiric antibiotics in the form of Ro cephin No worsening dyspnea, no fever or chills Brain CT has been ordered, completed and reviewed We will add Haldol 2 mg every 4 hours IM is needed for episodes of agitation, confusion Continue to follow his clinical course Stable from pulmonary perspective I performed a history & physical examination of the patient and discussed their management with my nurse practitioner, Yana Hayes. I reviewed the nurse practitioner's note and agree with the documented findings and plan of care. Lung sounds are positive for dim breath sounds throughout the lung ortiz. The findings and the impression was discussed with the patient. I attest to the documentation by the nurse practitioner. Time with Patient: Less than 30
[2021-06-01 11:45] LABS: Magnesium 1.8 mg/dL (1.5-2.4)
[2021-06-01 11:50] LABS: African American GFR (CKD) 66.3 (60.0-200.0); Albumin 2.9 g/dL (3.8-4.9); Albumin/Globulin Ratio 1.07 (1.60-3.17); Anion Gap 13.1 mmol/L (10.00-18.00); BUN/Creat Ratio 27.58 Ratio (12.00-20.00); Blood Urea Nitrogen 33.1 mg/dL (9.0-27.0); Calcium 8.7 mg/dL (8.7-10.3); Carbon Dioxide 27.9 mmol/L (20.0-27.5); Globulin 2.7 g/dL (1.6-3.3); Non-African American GFR(CKD) 57.2 (60.0-200.0); Potassium 3.8 mmol/L (3.5-5.5); Total Bilirubin 0.8 mg/dL (0.30-1.20); Total Protein 5.6 g/dL (6.2-8.2)
[2021-06-01 16:12] LABS: Glucose,Whole Blood 354 mg/dL (75-99)
[2021-06-01] MEDS: REMDESIVIR 100 MG in SODIUM CHLORIDE 0.9% 250 ML IVPB SCH (17:03)
--- NOTE | 2021-06-01 17:24 | P.PN ---
<Gareth Rothman - Last Filed: 06/01/21 17:17> Subjective Progress Note Date: 06/01/21 Principal diagnosis: Covid pneumonia Hospital course: Patient is a very pleasant 81-year-old male with a past medical history of CAD status post quadruple bypass, paroxysmal atrial fibrillation on anticoagulation with Eliquis, status post pacemaker, congestive heart failure, hypertension, hyperlipidemia, and type 2 diabetes mellitus. He presented to the emergency department on 05/28/21 with a chief complaint of a, abdominal pain, and diarrhea. Upon arrival to the emergency department patient was found to have an elevated temp of 101.7F, tachycardia with a heart rate in the 104, leukocytosis with WBC count of 14.2, and an acute kidney injury with BUN 48, creatinine 1.42, and GFR of 47. Covid PCR was positive. Chest x-ray revealed mild infiltrate at the left lung base. EKG revealing a ventricular paced rhythm of 97 bpm. Patient was admitted under our services with consultation to pulmonology. Echocardiogram completed revealing a mildly impaired EF between 45 and 50% and anteroseptal hypokinesis Physical exam: Patient seen and fully evaluated at the bedside this morning. RN reports overnight patient began having intermittent episodes of confusion. Concerns for possible EtOH use/abuse and patient was placed on CIWA protocol, however patient denies having any history of alcohol or drug use. This morning patient is alert and oriented to person, place, and situation. He has been weaned off of oxygen is currently on room air. He denies having any headache, lightheadedness, dizziness, tremors, diaphoresis, hallucinations, chest pain, palpitations, nausea, vomiting, or experiencing any numbness/tingling/weakness in his extremities. He does report continued fatigue and weakness. He is on day 3 out of 5 of Remdesivir and remains on Decadron, vitamin C, vitamin D, zinc, and Eliquis. Patient also remains on Rocephin secondary to elevated pro-calcitonin and concerns for possible bacterial pneumonia. Intermittent episodes of confusion possibly secondary to infection, hospital associated delirium, or underlying dementia. Patient being sent down for CT brain this morning. Vital signs reviewed and stable. General: Nontoxic, no distress and appears stated age. Obese. Derm: Skin warm and dry, normal coloration for ethnicity. Head: Atraumatic, normocephalic and symmetric. Eyes: EOMs intact, no lid lag, and anicteric sclera Mouth: no lip lesions, mucus membranes moist Cardiovascular: regular rate and rhythm with normal S1S2, systolic murmur, positive posterior tibial pulses bilaterally, and cap refill < 2 seconds. Lungs: Respirations even, regular, and unlabored on room air. Lungs diminished. No noted rhonchi, rales, wheezes or crackles this morning. Abdominal: soft, nontender to palpation, no guarding, no appreciable organomegaly Ext: ROM intact. No gross muscle atrophy, 1+ pitting bilateral lower extremity edema, no contractures Neuro: Speech clear, face symmetrical and CN II-XII grossly intact with no noted focal neuro deficits Psych: Alert and oriented to person, place, time, and situation. Appropriate and pleasant affect. Assessment and Plan of Care: Acute respiratory failure with hypoxia secondary to COVID 19 pneumonia -Oxygenation to be administered and titrated as needed to maintain SPO2 equal to or greater than 90% -Telemetry monitoring. -Continue trending inflammatory markers -Encourage Incentive Spirometry 10-15x hourly while awake -Steroids: Decadron 6 mg daily -Continue vitamin C, Vitamin D, and Zinc. -Pulmonology following, appreciate further recommendations. -DVT prophylaxis with Eliquis -Strict Droplet plus Contact precautions -Pro-calcitonin elevated at 0.43. Patient placed on IV antibiotics: Rocephin. 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 -Cardiology following -Continue telemetry monitoring -Echocardiogram revealed EF 45-50% with anteroseptal hypokinesis -Patient received 1 dose of Lasix 40 mg IVP and we will resume home medication regimen of Torsemide 40 mg daily. 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 Blood glucose levels in 300 Levemir increased to 30 units nightly and patient placed on fixed dose insulin 3 units before meals at bedtime in addition to NovoLog sliding scale. Lactic acidosis, resolved Paroxysmal atrial fibrillation -Continue anticoagulation with Eliquis. Coronary artery disease status post quadruple bypass and pacemaker placement Hypertension Hyperlipidemia -Monitor vital signs and continue daily medication regimen with Eliquis, as pirin, atorvastatin, amiodarone, carvedilol, and Imdur. CODE STATUS: Full code DVT prophylaxis: Margot Discussed with: Patient and RN Anticipated discharge date: Clinical course to determine Anticipated discharge place: Home versus home with home care A total of 40 minutes was spent on the care of this complex patient more than 50% of the time was spent in counseling and care coordination. Objective - Vital Signs Vital signs: Vital Signs Temp 97.5 F L 06/01/21 14:23 Pulse 80 06/01/21 14:23 Resp 18 06/01/21 14:23 BP 149/83 06/01/21 14:23 Pulse Ox 97 06/01/21 14:23 Intake & Output 05/31/21 06/01/21 06/01/21 18:59 06:59 18:59 Intake Total 222 Balance 222 Weight 93.894 kg Intake: Oral 222 Other: Voiding Method Toilet Toilet Toilet # Voids 8 1 1 # Bowel Movements 1 1 1 - Labs CBC & Chem 7: 06/01/21 06:18 06/01/21 06:18 Labs: Abnormal Lab Results - Last 24 Hours (Table) 05/31/21 05/31/21 06/01/21 Range/Units 08:45 20:05 06:18 WBC 13.99 H (4.50-10.00) X 10*3/uL RDW 15.4 H (11.5-14.5) % D-Dimer (<0.60) mg/L FEU Carbon Dioxide (20.0-27.5) mmol/L BUN (9.0-27.0) mg/dL Est GFR (CKD-EPI)NonAf (60.0-200.0) BUN/Creatinine Ratio (12.00-20.00) Ratio Glucose (70-110) mg/dL POC Glucose (mg/dL) 418 H (75-99) mg/dL AST (14-35) U/L Lactate Dehydrogenase (120-246) U/L C-Reactive Protein (0.00-0.80) mg/dL Total Protein (6.2-8.2) g/dL Albumin (3.8-4.9) g/dL Albumin/Globulin Ratio (1.60-3.17) g/dL Procalcitonin 0.43 H (0.02-0.09) ng/mL 06/01/21 06/01/21 06/01/21 Range/Units 06:18 06:18 07:04 WBC (4.50-10.00) X 10*3/uL RDW (11.5-14.5) % D-Dimer 2.59 H (<0.60) mg/L FEU Carbon Dioxide 27.9 H (20.0-27.5) mmol/L BUN 33.1 H (9.0-27.0) mg/dL Est GFR (CKD-EPI)NonAf 57.2 L (60.0-200.0) BUN/Creatinine Ratio 27.58 H (12.00-20.00) Ratio Glucose 215 H (70-110) mg/dL POC Glucose (mg/dL) 230 H (75-99) mg/dL AST 41 H (14-35) U/L Lactate Dehydrogenase 280 H (120-246) U/L C-Reactive Protein 10.00 H (0.00-0.80) mg/dL Total Protein 5.6 L (6.2-8.2) g/dL Albumin 2.9 L (3.8-4.9) g/dL Albumin/Globulin Ratio 1.07 L (1.60-3.17) g/dL Procalcitonin (0.02-0.09) ng/mL 06/01/21 06/01/21 Range/Units 10:54 16:10 WBC (4.50-10.00) X 10*3/uL RDW (11.5-14.5) % D-Dimer (<0.60) mg/L FEU Carbon Dioxide (20.0-27.5) mmol/L BUN (9.0-27.0) mg/dL Est GFR (CKD-EPI)NonAf (60.0-200.0) BUN/Creatinine Ratio (12.00-20.00) Ratio Glucose (70-110) mg/dL POC Glucose (mg/dL) 249 H 354 H (75-99) mg/dL AST (14-35) U/L Lactate Dehydrogenase (120-246) U/L C-Reactive Protein (0.00-0.80) mg/dL Total Protein (6.2-8.2) g/dL Albumin (3.8-4.9) g/dL Albumin/Globulin Ratio (1.60-3.17) g/dL Procalcitonin (0.02-0.09) ng/mL Microbiology - Last 24 Hours (Table) 06/01/21 02:00 Gram Stain - Preliminary Sputum Sputum Culture - Preliminary <Albert Owens A - Last Filed: 06/02/21 07:56> Subjective Principal diagnosis: agree with note and plan Objective - Vital Signs Vital signs: Vital Signs Temp 97.9 F 06/02/21 06:11 Pulse 80 06/02/21 06:11 Resp 18 06/02/21 06:11 BP 118/70 06/02/21 06:11 Pulse Ox 97 06/02/21 06:11 Intake & Output 06/01/21 06/02/21 06/02/21 18:59 06:59 18:59 Intake Total 480 240 Balance 480 240 Weight 93.894 kg Intake: Oral 480 240 Other: Voiding Method Toilet # Voids 8 1 # Bowel Movements 1 - Labs CBC & Chem 7: 06/01/21 06:18 06/01/21 06:18 Labs: Abnormal Lab Results - Last 24 Hours (Table) 06/01/21 06/01/21 06/01/21 Range/Units 06:18 06:18 10:54 WBC 13.99 H (4.50-10.00) X 10*3/uL RDW 15.4 H (11.5-14.5) % Carbon Dioxide 27.9 H (20.0-27.5) mmol/L BUN 33.1 H (9.0-27.0) mg/dL Est GFR (CKD-EPI)NonAf 57.2 L (60.0-200.0) BUN/Creatinine Ratio 27.58 H (12.00-20.00) Ratio Glucose 215 H (70-110) mg/dL POC Glucose (mg/dL) 249 H (75-99) mg/dL AST 41 H (14-35) U/L Lactate Dehydrogenase 280 H (120-246) U/L C-Reactive Protein 10.00 H (0.00-0.80) mg/dL Total Protein 5.6 L (6.2-8.2) g/dL Albumin 2.9 L (3.8-4.9) g/dL Albumin/Globulin Ratio 1.07 L (1.60-3.17) g/dL 06/01/21 06/01/21 06/02/21 Range/Units 16:10 20:07 06:52 WBC (4.50-10.00) X 10*3/uL RDW (11.5-14.5) % Carbon Dioxide (20.0-27.5) mmol/L BUN (9.0-27.0) mg/dL Est GFR (CKD-EPI)NonAf (60.0-200.0) BUN/Creatinine Ratio (12.00-20.00) Ratio Glucose (70-110) mg/dL POC Glucose (mg/dL) 354 H 381 H 106 H (75-99) mg/dL AST (14-35) U/L Lactate Dehydrogenase (120-246) U/L C-Reactive Protein (0.00-0.80) mg/dL Total Protein (6.2-8.2) g/dL Albumin (3.8-4.9) g/dL Albumin/Globulin Ratio (1.60-3.17) g/dL Microbiology - Last 24 Hours (Table) 06/01/21 02:00 Gram Stain - Preliminary Sputum Sputum Culture - Preliminary
[2021-06-01 20:09] LABS: Glucose,Whole Blood 381 mg/dL (75-99)
[2021-06-01] MEDS: INSULIN DETEMIR (LEVEMIR) 100 UNIT/ML SYR SQ SCH (20:25)
[2021-06-02 06:54] LABS: Glucose,Whole Blood 106 mg/dL (75-99)
[2021-06-02] MEDS: INSULIN ASPART (NovoLOG) 100 UNIT/ML VIAL SQ SCH ×8 (09:34→21:17)
[2021-06-02] MEDS: DEXAMETHASONE SOD PHOSPHATE 10 MG/ML 1 ML VIAL IVP SCH (09:36)
[2021-06-02] MEDS: CHOLECALCIFEROL 25 MCG (1000 IU) TABLET PO SCH (09:37)
[2021-06-02] MEDS: TORSEMIDE 20 MG TAB PO SCH (09:37)
[2021-06-02] MEDS: ZINC SULFATE 220 MG CAP PO SCH (09:38)
[2021-06-02] MEDS: ASPIRIN 81 MG PO SCH (09:39)
[2021-06-02] MEDS: ASCORBIC ACID 500 MG TAB PO SCH (09:39)
[2021-06-02] MEDS: AMIODARONE 100 MG TAB PO SCH (09:39)
[2021-06-02] MEDS: ATORVASTATIN 80 MG TAB PO SCH (09:39)
[2021-06-02] MEDS: APIXABAN 2.5 MG TABLET PO SCH ×2 (09:40→21:19)
[2021-06-02] MEDS: carvediloL 6.25 MG TAB PO SCH ×2 (09:40→21:19)
[2021-06-02] MEDS: THIAMINE 100 MG TAB PO SCH ×2 (09:40→16:45)
[2021-06-02 11:08] LABS: Glucose,Whole Blood 287 mg/dL (75-99)
--- NOTE | 2021-06-02 14:02 | P.PN ---
Subjective Progress Note Date: 06/02/21 This is a 81-year-old white male with history of multiple medical problems including chronic atrial fibrillation, coronary artery disease and previous CABG, type 2 diabetes, hypertension, dyslipidemia, patient was admitted on 05/28/2021, he had mostly symptoms of weakness, fatigue, abdominal pain, and diar humberto. His symptoms basically started 4 days prior to his presentation. And they have been getting progressively worse. His son evaluated the patient and he was noted to be confused, found him to be extremely weak, hence he brought him into the ER. Patient is fully vaccinated, however in spite of full vaccination, patient came in with COVID-19 infection/pneumonia. He had a temp of 101.7, he had O2 saturations 94% on room air, he was also noted to have mild infiltrate in the left lung base. Best appreciated on the CT angiogram of the chest. No evidence of pulmonary embolism. Patient had a bit of leukocytosis with WBC count of 11.55, d-dimer was 2.82. Initial creatinine was 1.2. LDH is not significantly elevated to 60, and C-reactive protein is 6.50. CT angiogram of the chest showed no evidence of pulmonary embolism, it did show left lower lobe atelectasis/pneumonia. And considering the patient had reflux of contrast material into the hepatic vein and inferior vena cava, radiologist raised the possibility of possible right heart failure. Patient was admitted and this consult was initiated. Patient was initially admitted on 05/27, and we were asked to see him on consultation today 05/30. Patient is receiving adequate treatment including ascorbic acid, Eliquis, he is also on Rocephin empirically which I started today because of a relatively high suspicion for superimposed bacterial pneumonia. Patient is on Decadron 6 mg IV push daily, he is also on his usual cardiac meds. And on insulin. On 05/31/2021 patient is in follow-up on medical surgical floor, he is up in the chair, breathing comfortably, he is on Tuesdays of oxygen pulse ox is 99%, denies any acute distress, he has been coughing, and bringing up white and sometimes yellow colored phlegm, is currently on Rocephin for possibly community-acquired pneumonia, he CTA chest was negative for PE, it did show left lower lobe atelectasis/consolidation. His vital 7 stable, no altered mentation. Seems to be improving, no acute events overnight. Today's labs have been reviewed showing white blood cell count of 13.5, hemoglobin of 14.8. D-dimer 5.67, electrodes are within normal limits, BUN of 35, creatinine is 1.06. Patient is receiving Decadron 6 mg daily, she is on home dose Eliquis 20 half milligrams twice daily, he is on multivitamins, and patient was started on Remdesivir yesterday On 06/01/2021 patient seen in follow-up on medical surgical floor, he is awake and alert, apparently last night he became confused, he was restless, he was quite compulsive, getting up out of bed unassisted, his ex- was contacted and she stated that patient has a history of drinking. He was started on CIWA protocol. This morning he is awake and alert, in no acute distress, he is oriented 3, he absolutely denies drinking, no alcohol, no illicit drugs. He states he only drinks Vern[place]. Denies any headaches, no diaphoresis, no shakes. Nursing states his mentation has been fluctuating, with periods of confusion. No focal neurological deficit has been noted, patient is breathing comfortably, he is on room air right now, his pulse ox is 97%, he is afebrile, he does have congestive cough, he is bringing up some clear colored sputum, he is on day 3 of his Remdesivir treatment, breathing very comfortably, his chest x-ray today shows cardiomegaly, left lower lobe atelectasis versus pneumonia or possibly scarring. Brain CT has been completed showing no acute intracranial hemorrhage or midline shift, mild to moderate diffuse age-related cerebral atrophy and moderate to severe chronic small vessel ischemic change noted. Patient continues on Decadron 6 mg daily, Rocephin continues for possibility of community acquired pneumonia, he is on home dose Eliquis and Cordarone 4 history of atrial fibrillation. CIWA protocol has been added, we'll add Haldol as needed for episodes of confusion The patient is seen today 06/02/2021 in follow-up on the regular medical floor. He is currently sitting up in bed. Awake and alert in no acute distress. He denies any worsening shortness of breath cough or congestion. He is still having some occasional episodes of confusion according to staff. He is friendly and cooperative. He has not required any Ativan or Haldol. The plan is for possible [facility] subacute rehab on Friday. He is on day #4 of Remdesivir. Continues on Decadron, vitamin supplements. He is anticoagulated with Eliquis. He is on antibiotics in the form of ceftriaxone. Sputum culture pending. Glucose 106. Objective - Vital Signs Vital signs: Vital Signs Temp 97.6 F 06/02/21 08:09 Pulse 96 06/02/21 08:09 Resp 18 06/02/21 08:09 BP 118/72 06/02/21 08:09 Pulse Ox 96 06/02/21 08:09 Intake & Output 06/01/21 06/02/21 06/02/21 18:59 06:59 18:59 Intake Total 480 240 Balance 480 240 Weight 93.894 kg Intake: Oral 480 240 Other: Voiding Method Toilet # Voids 8 1 # Bowel Movements 1 - Exam GENERAL EXAM: Alert, very pleasant, 81-year-old male patient, resting comfortably in bed, currently on room air with a pulse ox of 96% comfortable in no apparent distress. HEAD: Normocephalic/atraumatic. EYES: Normal reaction of pupils, equal size. Conjunctiva pink, sclera white. NOSE: Clear with pink turbinates. THROAT: No erythema or exudates. NECK: No masses, no JVD, no thyroid enlargement, no adenopathy. CHEST: No chest wall deformity. Symmetrical expansion. LUNGS: Equal air entry with no crackles, no wheezing CVS: Regular rate and rhythm, normal S1 and S2, no gallops, no murmurs, no rubs ABDOMEN: Soft, nontender. No hepatosplenomegaly, normal bowel sounds, no guarding or rigidity. EXTREMITIES: No clubbing, no edema, no cyanosis, 2+ pulses and upper and lower extremities. MUSCULOSKELETAL: Muscle strength and tone normal. SPINE: No scoliosis or deformity SKIN: No rashes CENTRAL NERVOUS SYSTEM: No focal deficits, tone is normal in all 4 extremities. PSYCHIATRIC: Alert and oriented -3. Appropriate affect. Intact judgment and insight. - Labs CBC & Chem 7: 06/01/21 06:18 06/01/21 06:18 Labs: Abnormal Lab Results - Last 24 Hours (Table) 06/01/21 06/01/21 06/02/21 Range/Units 16:10 20:07 06:52 POC Glucose (mg/dL) 354 H 381 H 106 H (75-99) mg/dL 06/02/21 Range/Units 11:06 POC Glucose (mg/dL) 287 H (75-99) mg/dL Microbiology - Last 24 Hours (Table) 06/01/21 02:00 Gram Stain - Preliminary Sputum Sputum Culture - Preliminary Assessment and Plan Assessment: 1 Acute hypoxic respiratory failure most likely related to acute bacterial pneumonia, likely community acquired pneumonia. Patient's presentation was more consistent with pneumonia, sepsis. Patient is currently on Rocephin. Pro-calcitonin level is pending, patient is also COVID-19 positive however his chest x-ray and CT chest findings are more consistent with left lower lobe pneumonia. Patient is fully vaccinated for COVID-19 with 2 injections of Moderna plus the booster, nevertheless he was within the window for Remdesivir he was started on it on 05/30/2021 2 Acute COVID-19 infection, chest x-ray and CT angios of the chest findings showing left lower lung atelectasis/consolidation, more consistent with community-acquired pneumonia rather than COVID-19 related pneumonia 3 No CTA evidence of pulmonary embolism 4 Chronic A. fib on Eliquis 5 Coronary artery disease 6 Chronic CHF, with a diastolic dysfunction 7 Diabetes mellitus type 2 8 Hypertension 9 Hyperlipidemia 10 GERD/reflux 11 Permanent pacemaker/AICD 12 Former smoker 13 Questionable history of alcoholism, currently on CIWA protocol 14 Altered mental status, with fluctuating delirium, brain CT has been completed showing no acute intracranial process, and showing mild to moderate diffuse age-related cerebral atrophy and moderate to severe chronic small vessel ischemic changes Plan: The patient was seen and evaluated Alert and cooperative Stable and on room air oxygen Day #4 for Remdesivir Remains on Decadron, vitamin supplements Continued on antibiotics in the form of ceftriaxone Anticoagulated with Eliquis Plan is for subacute rehab/[facility] on 06/04/2021 We will continue to follow I, the cosigning physician, performed a history & physical examination of the patient. Lungs sounds are clear. Maintaining good O2 saturations in the 90s on room air. I discussed the assessment and plan of care with my nurse practitioner, Annemarie Wong. I attest to the above note as dictated by her.
--- NOTE | 2021-06-02 15:21 | P.PN ---
<Gareth Rothman - Last Filed: 06/02/21 15:07> Subjective Progress Note Date: 06/02/21 Principal diagnosis: Covid pneumonia Hospital course: Patient is a very pleasant 81-year-old male with a past medical history of CAD status post quadruple bypass, paroxysmal atrial fibrillation on anticoagulation with Eliquis, status post pacemaker, congestive heart failure, hypertension, hyperlipidemia, and type 2 diabetes mellitus. He presented to the emergency department on 05/28/21 with a chief complaint of a, abdominal pain, and diarrhea. Upon arrival to the emergency department patient was found to have an elevated temp of 101.7F, tachycardia with a heart rate in the 104, leukocytosis with WBC count of 14.2, and an acute kidney injury with BUN 48, creatinine 1.42, and GFR of 47. Covid PCR was positive. Chest x-ray revealed mild infiltrate at the left lung base. EKG revealing a ventricular paced rhythm of 97 bpm. Patient was admitted under our services with consultation to pulmonology. Echocardiogram completed revealing a mildly impaired EF between 45 and 50% and anteroseptal hypokinesis Physical exam: Patient seen and fully evaluated at the bedside this morning. He appeared to be doing well. He was alert and oriented to person, time, place, and situation this morning. Patient denied having any complaints this morning with the exception of feeling weak and tired. He denies having any headache, lightheadedness, dizziness, chest pain, palpitations, worsening shortness of breath, worsening cough or congestion, or experiencing any numbness/tingling/we akness in his extremities. Patient reports appetite has been good. He is on day 4 of 5 of Remdesivir and remains on Decadron, vitamin C, vitamin D, zinc, and Eliquis. Patient also remains on Rocephin secondary to elevated pro- calcitonin and concerns for possible bacterial pneumonia. Plan is for discharge to [facility] on Friday. Vital signs reviewed and stable. General: Nontoxic, no distress and appears stated age. Obese. Derm: Skin warm and dry, normal coloration for ethnicity. Head: Atraumatic, normocephalic and symmetric. Eyes: EOMs intact, no lid lag, and anicteric sclera Mouth: no lip lesions, mucus membranes moist Cardiovascular: regular rate and rhythm with normal S1S2, systolic murmur, positive posterior tibial pulses bilaterally, and cap refill < 2 seconds. Lungs: Respirations even, regular, and unlabored on room air. Lungs diminished. No noted rhonchi, rales, wheezes or crackles this morning. Abdominal: soft, nontender to palpation, no guarding, no appreciable organo megaly Ext: ROM intact. No gross muscle atrophy, no edema, no contractures Neuro: Speech clear, face symmetrical and CN II-XII grossly intact with no noted focal neuro deficits Psych: Alert and oriented to person, place, time, and situation. Appropriate and pleasant affect. Assessment and Plan of Care: Acute respiratory failure with hypoxia secondary to COVID 19 pneumonia -Oxygenation to be administered and titrated as needed to maintain SPO2 equal to or greater than 90% -Telemetry monitoring. -Continue trending inflammatory markers -Encourage Incentive Spirometry 10-15x hourly while awake -Steroids: Decadron 6 mg daily -Remdesivir, day 4 of 5 -Continue vitamin C, Vitamin D, and Zinc. -Pulmonology following, appreciate further recommendations. -DVT prophylaxis with Eliquis -Strict Droplet plus Contact precautions -Pro-calcitonin elevated at 0.43. Patient placed on IV antibiotics: Rocephin. 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 -Cardiology following -Continue telemetry monitoring -Echocardiogram revealed EF 45-50% with anteroseptal hypokinesis -Patient received 1 dose of Lasix 40 mg IVP and we will resume home medication regimen of Torsemide 40 mg daily. 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 Blood glucose levels in 300 Levemir increased to 30 units nightly and patient placed on fixed dose insulin 3 units before meals at bedtime in addition to NovoLog sliding scale. Lactic acidosis, resolved Paroxysmal atrial fibrillation -Continue anticoagulation with Eliquis. Coronary artery disease status post quadruple bypass and pacemaker placement Hypertension Hyperlipidemia -Monitor vital signs and continue daily medication regimen with Eliquis, aspir in, atorvastatin, amiodarone, carvedilol, and Imdur. CODE STATUS: Full code DVT prophylaxis: Eliquis Discussed with: Patient and RN Anticipated discharge date: Friday Anticipated discharge place: [facility] A total of 45 minutes was spent on the care of this complex patient more than 50% of the time was spent in counseling and care coordination. Objective - Vital Signs Vital signs: Vital Signs Temp 98.6 F 06/02/21 13:28 Pulse 81 06/02/21 13:28 Resp 18 06/02/21 13:28 BP 119/77 06/02/21 13:28 Pulse Ox 96 06/02/21 13:28 Intake & Output 06/01/21 06/02/21 06/02/21 18:59 06:59 18:59 Intake Total 480 240 Balance 480 240 Weight 93.894 kg Intake: Oral 480 240 Other: Voiding Method Toilet # Voids 8 1 # Bowel Movements 1 - Labs CBC & Chem 7: 06/01/21 06:18 06/01/21 06:18 Labs: Abnormal Lab Results - Last 24 Hours (Table) 06/01/21 06/01/21 06/02/21 Range/Units 16:10 20:07 06:52 POC Glucose (mg/dL) 354 H 381 H 106 H (75-99) mg/dL 06/02/21 Range/Units 11:06 POC Glucose (mg/dL) 287 H (75-99) mg/dL Microbiology - Last 24 Hours (Table) 06/01/21 02:00 Gram Stain - Preliminary Sputum Sputum Culture - Preliminary <Taylor Ray - Last Filed: 06/02/21 18:45> Subjective Gareth Rothman NP rendered care for this patient independently, reviewed the findings and plan as documented in the note above. I did not physically speak with or examine the patient on this date. Objective - Vital Signs Vital signs: Vital Signs Temp 98.6 F 06/02/21 16:40 Pulse 78 06/02/21 16:40 Resp 18 06/02/21 16:40 BP 123/77 06/02/21 16:40 Pulse Ox 94 L 06/02/21 16:40 Intake & Output 06/01/21 06/02/21 06/02/21 18:59 06:59 18:59 Intake Total 480 240 Output Total 800 Balance 480 240 -800 Weight 93.894 kg Intake: Oral 480 240 Output: Urine 800 Other: Voiding Method Toilet # Voids 8 1 # Bowel Movements 1 - Labs CBC & Chem 7: 06/01/21 06:18 06/01/21 06:18 Labs: Abnormal Lab Results - Last 24 Hours (Table) 06/01/21 06/02/21 06/02/21 Range/Units 20:07 06:52 11:06 POC Glucose (mg/dL) 381 H 106 H 287 H (75-99) mg/dL 06/02/21 Range/Units 16:16 POC Glucose (mg/dL) 348 H (75-99) mg/dL Microbiology - Last 24 Hours (Table) 06/01/21 02:00 Gram Stain - Preliminary Sputum Sputum Culture - Preliminary
[2021-06-02] MEDS: ALBUTEROL HFA INHALER INHALATION SCH ×3 (15:22→20:27)
[2021-06-02 16:18] LABS: Glucose,Whole Blood 348 mg/dL (75-99)
[2021-06-02] MEDS: REMDESIVIR 100 MG in SODIUM CHLORIDE 0.9% 250 ML IVPB SCH (16:45)
[2021-06-02 21:11] LABS: Glucose,Whole Blood 524 mg/dL (75-99)
[2021-06-02 21:11] LABS: Glucose,Whole Blood 477 mg/dL (75-99)
[2021-06-02 21:11] LABS: Glucose,Whole Blood 482 mg/dL (75-99)
[2021-06-02] MEDS: INSULIN DETEMIR (LEVEMIR) 100 UNIT/ML SYR SQ SCH (21:42)
[2021-06-03 00:21] LABS: Glucose,Whole Blood 396 mg/dL (75-99)
[2021-06-03] MEDS ORDERED: INSULIN ASPART (NovoLOG) 100 UNIT/ML VIAL SQ ONE (00:39)
[2021-06-03 02:31] LABS: Glucose,Whole Blood 228 mg/dL (75-99)
[2021-06-03 06:47] LABS: Glucose,Whole Blood 111 mg/dL (75-99)
[2021-06-03] MEDS: INSULIN ASPART (NovoLOG) 100 UNIT/ML VIAL SQ SCH ×8 (07:07→20:22)
[2021-06-03] MEDS: CHOLECALCIFEROL 25 MCG (1000 IU) TABLET PO SCH (07:11)
[2021-06-03] MEDS: carvediloL 6.25 MG TAB PO SCH ×2 (07:12→20:22)
[2021-06-03] MEDS: ASCORBIC ACID 500 MG TAB PO SCH (07:12)
[2021-06-03] MEDS: ASPIRIN 81 MG PO SCH (07:12)
[2021-06-03] MEDS: THIAMINE 100 MG TAB PO SCH ×2 (07:13→17:16)
[2021-06-03] MEDS: ATORVASTATIN 80 MG TAB PO SCH (07:13)
[2021-06-03] MEDS: ZINC SULFATE 220 MG CAP PO SCH (07:13)
[2021-06-03] MEDS: APIXABAN 2.5 MG TABLET PO SCH ×2 (07:13→20:22)
[2021-06-03] MEDS: TORSEMIDE 20 MG TAB PO SCH (07:14)
[2021-06-03] MEDS: AMIODARONE 100 MG TAB PO SCH (07:15)
[2021-06-03] MEDS: ALBUTEROL HFA INHALER INHALATION SCH ×4 (07:41→19:14)
[2021-06-03] MEDS: DEXAMETHASONE SOD PHOSPHATE 10 MG/ML 1 ML VIAL IVP SCH (09:28)
[2021-06-03 11:12] LABS: Glucose,Whole Blood 158 mg/dL (75-99)
[2021-06-03] MEDS ORDERED: BENZONATATE 100 MG CAP PO PRN (11:38)
[2021-06-03] MEDS: guaiFENesin SYRUP 100MG/5ML 200 MG/10 ML CUP PO SCH ×2 (11:53→17:16)
--- NOTE | 2021-06-03 15:44 | P.PN ---
<Gareth Rothman - Last Filed: 06/03/21 15:29> Subjective Progress Note Date: 06/03/21 Principal diagnosis: Covid pneumonia Hospital course: Patient is a very pleasant 81-year-old male with a past medical history of CAD status post quadruple bypass, paroxysmal atrial fibrillation on anticoagulation with Eliquis, status post pacemaker, congestive heart failure, hypertension, hyperlipidemia, and type 2 diabetes mellitus. He presented to the emergency department on 05/28/21 with a chief complaint of a, abdominal pain, and diarrhea. Upon arrival to the emergency department patient was found to have an elevated temp of 101.7F, tachycardia with a heart rate in the 104, leukocytosis with WBC count of 14.2, and an acute kidney injury with BUN 48, creatinine 1.42, and GFR of 47. Covid PCR was positive. Chest x-ray revealed mild infiltrate at the left lung base. EKG revealing a ventricular paced rhythm of 97 bpm. Patient was admitted under our services with consultation to pulmonology. Echocardiogram completed revealing a mildly impaired EF between 45 and 50% and anteroseptal hypokinesis. Patient undergoing treatment with Remdesivir, Decadron, vitamin C, vitamin D, and zinc. He was also placed on Rocephin secondary to elevated pro-calcitonin and concerns for possible bacteria pneumonia. Physical exam: Patient seen and fully evaluated at the bedside this morning. He continues to do well and remains on room air with SpO2 of 96%. Patient reports improvement in appetite and states slight improvement of fatigue and would like to attempt to get into the shower today. Patient denies having any headache, lightheadedness, dizziness, chest pain, palpitations, or experiencing any numbness/tingling/weakness in his extremities. He reports feeling a little better today and is due for his fifth dose of Remdesivir this evening with plans for discharge to [facility] tomorrow morning. Vital signs reviewed and stable. General: Nontoxic, no distress and appears stated age. Obese. Derm: Skin warm and dry, normal coloration for ethnicity. Head: Atraumatic, normocephalic and symmetric. Eyes: EOMs intact, no lid lag, and anicteric sclera Mouth: no lip lesions, mucus membranes moist Cardiovascular: regular rate and rhythm with normal S1S2, systolic murmur, posit keshia posterior tibial pulses bilaterally, and cap refill < 2 seconds. Lungs: Respirations even, regular, and unlabored on room air. Lungs diminished. No noted rhonchi, rales, wheezes or crackles this morning. Abdominal: soft, nontender to palpation, no guarding, no appreciable organomegaly Ext: ROM intact. No gross muscle atrophy, no edema, no contractures Neuro: Speech clear, face symmetrical and CN II-XII grossly intact with no noted focal neuro deficits Psych: Alert and oriented to person, place, time, and situation. Appropriate and pleasant affect. Assessment and Plan of Care: Acute respiratory failure with hypoxia secondary to COVID 19 pneumonia -Oxygenation to be administered and titrated as needed to maintain SPO2 equal to or greater than 90% -Telemetry monitoring. -Continue trending inflammatory markers -Encourage Incentive Spirometry 10-15x hourly while awake -Steroids: Decadron 6 mg daily -Remdesivir, day 5 of 5, final dose due this evening -Continue vitamin C, Vitamin D, and Zinc. -Pulmonology following, appreciate further recommendations. -DVT prophylaxis with Eliquis -Strict Droplet plus Contact precautions -Pro-calcitonin elevated at 0.43. Patient placed on IV antibiotics: Rocephin. 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 -Cardiology following -Continue telemetry monitoring -Echocardiogram revealed EF 45-50% with anteroseptal hypokinesis -Patient received 1 dose of Lasix 40 mg IVP and we will resume home medication regimen of Torsemide 40 mg daily. 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 Blood glucose levels in 300 Levemir increased to 30 units nightly and patient placed on fixed dose insulin 3 units before meals at bedtime in addition to NovoLog sliding scale. Lactic acidosis, resolved Paroxysmal atrial fibrillation -Continue anticoagulation with Eliquis. Coronary artery disease status post quadruple bypass and pacemaker placement Hypertension Hyperlipidemia -Monitor vital signs and continue daily medication regimen with Eliquis, aspirin, atorvastatin, amiodarone, carvedilol, and Imdur. CODE STATUS: Full code DVT prophylaxis: Eliquis Discussed with: Patient and RN Anticipated discharge date: Tomorrow morning Anticipated discharge place: [facility] A total of 45 minutes was spent on the care of this complex patient more than 50% of the time was spent in counseling and care coordination. Objective - Vital Signs Vital signs: Vital Signs Temp 98.5 F 06/03/21 08:06 Pulse 80 06/03/21 08:06 Resp 18 06/03/21 08:20 BP 116/78 06/03/21 08:06 Pulse Ox 96 06/03/21 08:06 Intake & Output 06/02/21 06/03/21 06/03/21 18:59 06:59 18:59 Intake Total 600 Output Total 800 Balance -800 600 Intake: Oral 600 Output: Urine 800 Other: Voiding Method Toilet Urinal # Voids 3 - Labs CBC & Chem 7: 06/01/21 06:18 06/01/21 06:18 Labs: Abnormal Lab Results - Last 24 Hours (Table) 06/02/21 06/02/21 06/02/21 Range/Units 16:16 21:05 21:07 POC Glucose (mg/dL) 348 H 482 H 524 H (75-99) mg/dL 06/02/21 06/03/21 06/03/21 Range/Units 21:08 00:19 02:27 POC Glucose (mg/dL) 477 H 396 H 228 H (75-99) mg/dL 06/03/21 06/03/21 Range/Units 06:45 11:06 POC Glucose (mg/dL) 111 H 158 H (75-99) mg/dL Microbiology - Last 24 Hours (Table) 06/01/21 02:00 Gram Stain - Final Sputum Sputum Culture - Final <Taylor Ray - Last Filed: 06/05/21 08:32> Subjective Gareth Rothman NP rendered care for this patient independently, reviewed the findings and plan as documented in the note above. I did not physically speak with or examine the patient on this date. Objective - Vital Signs Vital signs: Vital Signs Temp 97.6 F 06/04/21 10:00 Pulse 80 06/04/21 10:00 Resp 18 06/04/21 10:00 BP 131/81 06/04/21 10:00 Pulse Ox 93 L 06/04/21 10:00 Intake & Output 06/04/21 06/05/21 06/05/21 18:59 06:59 18:59 Other: Voiding Method Urinal - Labs CBC & Chem 7: 06/03/21 16:07 06/03/21 16:07 Labs: Abnormal Lab Results - Last 24 Hours (Table) 06/04/21 Range/Units 11:47 POC Glucose (mg/dL) 437 H (75-99) mg/dL
[2021-06-03 16:20] LABS: Glucose,Whole Blood 304 mg/dL (75-99)
[2021-06-03] MEDS: REMDESIVIR 100 MG in SODIUM CHLORIDE 0.9% 250 ML IVPB SCH (16:20)
[2021-06-03 16:34] LABS: HCT 46.3 % (39.0-53.0); MCHC 32.4 g/dL (31.0-37.0); MCV 95.7 fL (80.0-100.0); Mean Platelet Volume 8.5; Platelet Count 283 k/uL (150-450); RBC 4.84 m/uL (4.30-5.90); RDW 14.7 % (11.5-15.5); WBC 18.9 k/uL (3.8-10.6)
[2021-06-03 16:51] LABS: ALT 23 U/L (4-49); AST 32 U/L (17-59); African American GFR (CKD) 65 (>60 ml/min/1.73 sqM); Albumin 2.8 g/dL (3.5-5.0); Alkaline Phosphatase 126 U/L (38-126); Anion Gap 8 mmol/L; Blood Urea Nitrogen 42 mg/dL (9-20); Calcium 8.6 mg/dL (8.4-10.2); Carbon Dioxide 36 mmol/L (22-30); Chloride 88 mmol/L (98-107); Globulin 2.9 g/dL; Glucose 315 mg/dL (74-99); LDH 541 U/L (313-618); Magnesium 1.7 mg/dL (1.6-2.3); Non-African American GFR(CKD) 56 (>60 ml/min/1.73 sqM); Potassium 3.9 mmol/L (3.5-5.1); Sodium 132 mmol/L (137-145); Total Bilirubin 0.9 mg/dL (0.2-1.3); Total Protein 5.7 g/dL (6.3-8.2)
[2021-06-03 19:53] LABS: Glucose,Whole Blood 464 mg/dL (75-99)
[2021-06-03] MEDS: INSULIN DETEMIR (LEVEMIR) 100 UNIT/ML SYR SQ SCH (20:51)
[2021-06-03 23:09] LABS: Glucose,Whole Blood 398 mg/dL (75-99)
[2021-06-04] MEDS ORDERED: INSULIN ASPART (NovoLOG) 100 UNIT/ML VIAL SQ ONE (00:11)
[2021-06-04] MEDS: guaiFENesin SYRUP 100MG/5ML 200 MG/10 ML CUP PO SCH ×2 (00:37→05:38)
[2021-06-04 04:09] LABS: Glucose,Whole Blood 262 mg/dL (75-99)
[2021-06-04 04:22] VITALS: PULSE 80
[2021-06-04 06:12] VITALS: RESP 18
[2021-06-04 06:59] LABS: Glucose,Whole Blood 189 mg/dL (75-99)
[2021-06-04] MEDS: ATORVASTATIN 80 MG TAB PO SCH (08:43)
[2021-06-04] MEDS: APIXABAN 2.5 MG TABLET PO SCH (08:43)
[2021-06-04] MEDS: ASPIRIN 81 MG PO SCH (08:43)
[2021-06-04] MEDS: THIAMINE 100 MG TAB PO SCH (08:43)
[2021-06-04] MEDS: DEXAMETHASONE SOD PHOSPHATE 10 MG/ML 1 ML VIAL IVP SCH (08:43)
[2021-06-04] MEDS: CHOLECALCIFEROL 25 MCG (1000 IU) TABLET PO SCH (08:43)
[2021-06-04] MEDS: ASCORBIC ACID 500 MG TAB PO SCH (08:43)
[2021-06-04] MEDS: AMIODARONE 100 MG TAB PO SCH (08:43)
[2021-06-04] MEDS: ZINC SULFATE 220 MG CAP PO SCH (08:43)
[2021-06-04] MEDS: carvediloL 6.25 MG TAB PO SCH (08:43)
[2021-06-04] MEDS: INSULIN ASPART (NovoLOG) 100 UNIT/ML VIAL SQ SCH ×4 (08:44→12:37)
[2021-06-04] MEDS: ALBUTEROL HFA INHALER INHALATION SCH ×2 (08:56→12:05)
[2021-06-04] MEDS ORDERED: TORSEMIDE 20 MG TAB PO SCH (09:00)
--- NOTE | 2021-06-04 09:24 | P.DS ---
<Gareth Rothman - Last Filed: 06/04/21 11:01> Providers Expected date of discharge: 06/04/21 Hospital Course: Discharge Diagnosis: Acute respiratory failure with hypoxia secondary to COVID 19 pneumonia Concerns of bacterial pneumonia, completed 7 day course of antibiotic regimen with azithromycin and Rocephin Chronic diastolic and systolic CHF with EF 45-50%, continue daily medication management with torsemide, dose reduced to 20 mg daily Depression resulting from life stressors including the recent suicide of his son, social work gave patient information on outpatient support groups and assistance upon discharge from SNF Acute kidney injury, resolved after IV fluid hydration and holding of diuretics 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 Long acting Levemir increased to 30 units nightly and patient placed on fixed dose NovoLog 3 units with meals and at bedtime. Blood glucose levels to be monitored closely, as further adjustments may need to be needed once patient completes course of steroids. Lactic acidosis, resolved Leukocytosis, reactive from steroids, repeat labs in 1 week to monitor for resolution Paroxysmal atrial fibrillation, Continue anticoagulation with Eliquis. Coronary artery disease status post quadruple bypass and pacemaker placement Hypertension Hyponatremia, dose of torosemide was reduced, orders placed through repeat labs in 1 week to monitor for resolution Hyperlipidemia, continue daily medication regimen with Eliquis, aspirin, atorvastatin, amiodarone, carvedilol, and Imdur. Hospital Course: Patient is a very pleasant 81-year-old male with a past medical history of CAD status post quadruple bypass, paroxysmal atrial fibrillation on anticoagulation with Eliquis, status post pacemaker, congestive heart failure, hypertension, hyperlipidemia, and type 2 diabetes mellitus. He presented to the emergency department on 05/28/21 with a chief complaint of a, abdominal pain, and diarrhea. Upon arrival to the emergency department patient was found to have an elevated temp of 101.7F, tachycardia with a heart rate in the 104, leukocytosis with WBC count of 14.2, and an acute kidney injury with BUN 48, creatinine 1.42, and GFR of 47. Covid PCR was positive. Chest x-ray revealed mild infiltrate at the left lung base. EKG revealing a ventricular paced rhythm of 97 bpm. Patient was admitted under our services with consultation to pulmonology. Echocardiogram completed revealing a mildly impaired EF between 45 and 50% and anteroseptal hypokinesis. Patient underwent treatment with Remdesivir, Decadron, vitamin C, vitamin D, and zinc. He was also placed on Rocephin and azithromycin secondary to elevated pro-calcitonin and concerns for possible bacteria pneumonia. Patient completed 5 day course of azithromycin and 7 day course of antibiotic with Rocephin. Patient completed 5 day course of Remdesivir. Patient is on room air maintaining oxygen saturations well. Has had good appetite and denies any complaints other than generalized weakness. He was evaluated by physical therapy, recommended for rehab placement. Patient is medically stable and is stable for discharge to [facility] at this time. 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 Physical exam: Patient seen and fully evaluated at the bedside this morning. He continues to do well and remains on room air with SpO2 of 95%. Patient is doing well and has had good appetite. He denies having any headache, lightheadedness, dizziness, chest pain, palpitations, or experiencing any numbness/tingling/weakness in his extremities. Vital signs reviewed and stable. General: Nontoxic, no distress and appears stated age. Obese. Derm: Skin warm and dry, normal coloration for ethnicity. Head: Atraumatic, normocephalic and symmetric. Eyes: EOMs intact, no lid lag, and anicteric sclera Mouth: no lip lesions, mucus membranes moist Cardiovascular: regular rate and rhythm with normal S1S2, systolic murmur, positive posterior tibial pulses bilaterally, and cap refill < 2 seconds. Lungs: Respirations even, regular, and unlabored on room air. Lungs diminished. No noted rhonchi, rales, wheezes or crackles this morning. Abdominal: soft, nontender to palpation, no guarding, no appreciable organomegaly Ext: ROM intact. No gross muscle atrophy, no edema, no contractures Neuro: Speech clear, face symmetrical and CN II-XII grossly intact with no noted focal neuro deficits Psych: Alert and oriented to person, place, time, and situation. Appropriate and pleasant affect. A total of 45 minutes of time were spent preparing this complex discharge summary. Patient Condition at Discharge: Stable Plan - Discharge Summary Discharge Rx Participant: No New Discharge Prescriptions: New Torsemide [Demadex] 20 mg PO DAILY tab Acetaminophen Tab [Tylenol] 650 mg PO Q6HR PRN tab PRN Reason: Mild Pain Or Fever > 100.5 Ascorbic Acid [Vitamin C] 1,000 mg PO DAILY tab Cholecalciferol [Vitamin D3 (25 Mcg = 1000 Iu)] 125 mcg PO DAILY tablet Insulin Detemir (Levemir) [Levemir] 30 unit SQ HS ml INSULIN ASPART (NovoLOG) [NovoLOG (formulary)] 3 unit SQ ACHS ml Zinc Sulfate [Orazinc] 220 mg PO DAILY cap guaiFENesin SYRUP 100MG/5ML [Robitussin] 200 mg PO Q6HR ml Benzonatate [Tessalon Perles] 200 mg PO TID PRN cap PRN Reason: Cough Albuterol Inhaler [Ventolin Hfa Inhaler] 1 puff INHALATION RT-QID gm Thiamine [Vitamin B-1] 100 mg PO BID-W/MEALS tab Dexamethasone [Decadron] 6 mg PO DAILY 2 Days #2 tablet Continue Atorvastatin [Lipitor] 80 mg PO DAILY carvediloL [Coreg] 6.25 mg PO BID Omeprazole 20 mg PO DAILY Febuxostat 40 mg PO DAILY HYDROcodone/APAP 7.5-325MG [Anna 7.5-325] 1 tab PO Q6HR PRN PRN Reason: Pain Dulaglutide [Trulicity] 3 mg SQ WE Indomethacin [Indocin] 50 mg PO BID PRN PRN Reason: gout flare Apixaban [Eliquis] 2.5 mg PO BID Amiodarone [Cordarone] 100 mg PO DAILY Aspirin EC [Ecotrin Low Dose] 81 mg PO DAILY Discontinued Insulin Glargine,Hum.rec.anlog [Lantus Solostar Pen] 28 unit SQ HS Torsemide [Demadex] 40 mg PO DAILY Cholecalciferol [Vitamin D3 (25 Mcg = 1000 Iu)] 50 mcg PO DAILY Discharge Medication List Amiodarone [Cordarone] 100 mg PO DAILY 05/28/21 [History] Apixaban [Eliquis] 2.5 mg PO BID 05/28/21 [History] Aspirin EC [Ecotrin Low Dose] 81 mg PO DAILY 05/28/21 [History] Atorvastatin [Lipitor] 80 mg PO DAILY 05/28/21 [History] Dulaglutide [Trulicity] 3 mg SQ WE 05/28/21 [History] Febuxostat 40 mg PO DAILY 05/28/21 [History] HYDROcodone/APAP 7.5-325MG [Anna 7.5-325] 1 tab PO Q6HR PRN 05/28/21 [History] Indomethacin [Indocin] 50 mg PO BID PRN 05/28/21 [History] Omeprazole 20 mg PO DAILY 05/28/21 [History] carvediloL [Coreg] 6.25 mg PO BID 05/28/21 [History] Acetaminophen Tab [Tylenol] 650 mg PO Q6HR PRN tab 06/04/21 [Rx] Albuterol Inhaler [Ventolin Hfa Inhaler] 1 puff INHALATION RT-QID gm 06/04/21 [Rx] Ascorbic Acid [Vitamin C] 1,000 mg PO DAILY tab 06/04/21 [Rx] Benzonatate [Tessalon Perles] 200 mg PO TID PRN cap 06/04/21 [Rx] Cholecalciferol [Vitamin D3 (25 Mcg = 1000 Iu)] 125 mcg PO DAILY tablet 06/04/21 [Rx] Dexamethasone [Decadron] 6 mg PO DAILY 2 Days #2 tablet 06/04/21 [Rx] INSULIN ASPART (NovoLOG) [NovoLOG (formulary)] 3 unit SQ ACHS ml 06/04/21 [Rx] Insulin Detemir (Levemir) [Levemir] 30 unit SQ HS ml 06/04/21 [Rx] Thiamine [Vitamin B-1] 100 mg PO BID-W/MEALS tab 06/04/21 [Rx] Torsemide [Demadex] 20 mg PO DAILY tab 06/04/21 [Rx] Zinc Sulfate [Orazinc] 220 mg PO DAILY cap 06/04/21 [Rx] guaiFENesin SYRUP 100MG/5ML [Robitussin] 200 mg PO Q6HR ml 06/04/21 [Rx] Follow up Appointment(s)/Referral(s): Alexy Ceja MD [STAFF PHYSICIAN] - 07/02/21 1:00 pm Ashlee Garcia MD [STAFF PHYSICIAN] - 1 Week (office will call patient with appointment date and time ) Jessi Wilson MD [Primary Care Provider] - 1-2 days (patient to call offi ce and schedule appointment after D/C) Ambulatory/Diagnostic Orders: Basic Metabolic Panel [LAB.AMB] Time Frame: 1 Week, Location: None Selected Complete Blood Count w/diff [LAB.AMB] Time Frame: 1 Week, Location: None Selected Activity/Diet/Wound Care/Special Instructions: Activity: As tolerated. Take breaks as needed. Diet: Heart healthy and carb consistent diet. Avoid salts, or foods with hidden salts such as canned or boxed foods and frozen dinners. Extra salt makes your heart work harder and traps the fluid in your body for longer. Special Instructions: Take all of your medications as directed and remember to keep all of your doctor's appointments and follow-up as needed. Closely monitor blood glucose levels and document in a daily log. It is important to bring with you to your follow-up appointment with your physician as additional changes may need to be made to your long acting and/or short acting insulin regimen. Thank you for allowing us to participate in your care, it was truly a pleasure having you for our patient!!! Discharge Disposition: TRANSFER TO SNF/ECF <Taylor Ray - Last Filed: 06/04/21 16:18> Providers Date of admission: 05/28/21 00:21 Attending physician: Lui Strauss MD Consults: 05/30/21 14:20 Consult Physician Routine Consulting Provider: Jennyfer Obando Consult Reason/Comments: Covid Do you want consulting provider notified?: Yes Primary care physician: Jessi Wilson MD Hospital Course: Gareth Rothman NP rendered care for this patient independently, reviewed the findings and plan as documented in the note above. I did not physically speak with or examine the patient on this date.
[2021-06-04 10:10] VITALS: BP 131/81; TEMP 97.6
[2021-06-04 11:49] LABS: Glucose,Whole Blood 437 mg/dL (75-99)
== END 2021-06-04 12:43 | DRG 177 ==
LOC: EC 20:34 → 4SSUR 05-28 00:21
PROVIDERS: ADMIT Internal Medicine; ATTEND Internal Medicine
PROC: 3E0433Z Introduction of Anti-inflammatory into Central Vein, Percutaneous Approach (ICD-10-PCS; 2021-05-27)
PROC: XW043E5 Introduction of Remdesivir Anti-infective into Central Vein, Percutaneous Approach, New Technology Group 5 (ICD-10-PCS; principal; 2021-05-30)
DX: U07.1 COVID-19 (principal); J12.82 Pneumonia due to coronavirus disease 2019; J12.89 Other viral pneumonia; J15.9 Unspecified bacterial pneumonia; J96.01 Acute respiratory failure with hypoxia; E87.1 Hypo-osmolality and hyponatremia; E87.2 Acidosis; I48.21 Permanent atrial fibrillation; I50.42 Chronic combined systolic (congestive) and diastolic (congestive) heart failure; J98.11 Atelectasis; N17.9 Acute kidney failure, unspecified; E11.65 Type 2 diabetes mellitus with hyperglycemia; E78.5 Hyperlipidemia, unspecified; E86.0 Dehydration; F32.A Depression, unspecified; I11.0 Hypertensive heart disease with heart failure; I25.10 Atherosclerotic heart disease of native coronary artery without angina pectoris; I50.82 Biventricular heart failure; I71.9 Aortic aneurysm of unspecified site, without rupture; K21.9 Gastro-esophageal reflux disease without esophagitis; K52.9 Noninfective gastroenteritis and colitis, unspecified; Z79.01 Long term (current) use of anticoagulants; Z79.4 Long term (current) use of insulin; Z79.82 Long term (current) use of aspirin; Z79.899 Other long term (current) drug therapy; Z87.891 Personal history of nicotine dependence; Z95.0 Presence of cardiac pacemaker; Z95.1 Presence of aortocoronary bypass graft; G89.29 Other chronic pain; M10.9 Gout, unspecified; M54.9 Dorsalgia, unspecified
CPT/HCPCS: 36415; 70450; 71045; 71275; 80053; 82728; 83036; 83605; 83615; 83735; 83880; 84145; 84484; 85025; 85027; 85379; 85610; 85730; 86140; 87070; 87205; 87635; 93005; 93306; 94640; 96361; 96374; 96375; 96376; 99291